=== PATIENT | female | born 1970 | race Caucasian/White ===

== ENCOUNTER → 2019-03-25 09:19 | Outpatient (BNVA) | payer MEDICAID, SELFPAY | PROVIDERS: Family Provider Nurse Practitioner Family; PCP Nurse Practitioner Family; Visit Provider Nurse Practitioner | DX: F31.61 Bipolar disorder, current episode mixed, mild (principal); F41.1 Generalized anxiety disorder | CPT/HCPCS: 99213 ==

== ENCOUNTER → 2019-06-17 07:33 | Outpatient (BNVA) | payer MEDICAID, SELFPAY | PROVIDERS: Family Provider Nurse Practitioner Family; PCP Nurse Practitioner Family; Visit Provider Nurse Practitioner | DX: F41.1 Generalized anxiety disorder (principal); F31.61 Bipolar disorder, current episode mixed, mild | CPT/HCPCS: 99213 ==

== ENCOUNTER → 2019-06-18 11:41 | Outpatient (BNVA) | payer MEDICAID, SELFPAY | PROVIDERS: Family Provider Nurse Practitioner Family; PCP Nurse Practitioner Family; Visit Provider Specialist | DX: G43.909 Migraine, unspecified, not intractable, without status migrainosus (principal) | CPT/HCPCS: 99213 ==

== ENCOUNTER → 2019-07-28 10:26 | Outpatient (BNVA) | payer MEDICAID, SELFPAY | PROVIDERS: Family Provider Nurse Practitioner Family; PCP Nurse Practitioner Family; Visit Provider Specialist | DX: G56.21 Lesion of ulnar nerve, right upper limb (principal) | CPT/HCPCS: 95910 ==

== ENCOUNTER → 2019-09-09 07:43 | Outpatient (BNVA) | payer MEDICAID, SELFPAY | PROVIDERS: Family Provider Nurse Practitioner Family; PCP Nurse Practitioner Family; Visit Provider Nurse Practitioner | DX: F41.1 Generalized anxiety disorder (principal); F31.61 Bipolar disorder, current episode mixed, mild | CPT/HCPCS: 99213 ==

== ENCOUNTER → 2019-10-03 07:49 | Outpatient (BNVA) | payer MEDICAID, SELFPAY | PROVIDERS: Family Provider Nurse Practitioner Family; PCP Nurse Practitioner Family; Visit Provider Nurse Practitioner | DX: F31.61 Bipolar disorder, current episode mixed, mild (principal) | CPT/HCPCS: 99214 ==

== ENCOUNTER 2019-10-30 15:40 | Outpatient (CLI) | payer MEDICAID, SELFPAY ==
--- NOTE | 2019-10-30 | XR_ITS ---
WS: [id number] SHOULDER LEFT TECHNIQUE: 3 views of the left shoulder CLINICAL INFORMATION: pain COMPARISON: None. FINDINGS: Normal acromioclavicular joint. Normal glenohumeral joint. Acromion is normal in appearance. Normal g lenoid. No evidence of acute fracture dislocation. XR/XR shoulder LT min 2V* [id number] IMPRESSION: Normal left shoulder.
--- NOTE | 2019-10-30 | XR_ITS ---
WS: [id number] ELBOW LEFT TECHNIQUE: 2 views of the left elbow CLINICAL INFORMATION: pain COMPARISON: None. FINDINGS: No significant joint effusion. Distal humerus is normal in appearance. Normal radial head. Normal ole cranon. No evidence of acute fracture dislocation. XR/XR elbow LT 2V [id number] IMPRESSION: Normal left elbow.
== END 2019-10-30 15:41 | disposition home or self-care (01) ==
PROVIDERS: Family Provider Nurse Practitioner Family; PCP Nurse Practitioner Family; Visit Provider Nurse Practitioner Family
DX: M25.522 Pain in left elbow (principal); M25.512 Pain in left shoulder
CPT/HCPCS: 73030; 73070

== ENCOUNTER → 2019-12-03 08:13 | Outpatient (BNVA) | payer MEDICAID, SELFPAY | PROVIDERS: Family Provider Nurse Practitioner Family; PCP Nurse Practitioner Family; Visit Provider Nurse Practitioner | DX: F31.30 Bipolar disorder, current episode depressed, mild or moderate severity, unspecified (principal) | CPT/HCPCS: 99214 ==

== ENCOUNTER 2019-12-16 11:23 | Outpatient (CLI) | payer MEDICAID, SELFPAY ==
--- NOTE | 2019-12-16 11:41 | USCV_ITS ---
Cindy Dumont Age: 49 Gender: F : 1970 Exam Date: 12/16/2019 11:44 Ordering Phys: Aneta Gross APN Technologist: Melissa Bender Exam Location: [facility] [place] Indication: PAIN IN RT LEG HISTORY: Lower extremity pain. PROCEDURES: Venous duplex imaging was performed in only the right lower extremity. The following venous structures were evaluated: common femoral vein, profunda vein, proximal portion of the greater saphenous vein, superficial femoral vein, and the popliteal vein. In addition, the posterior tibial and peroneal trunk were evaluated. Serial compression, augmentation maneuvers, and spectral Doppler flow evaluation were performed. FINDINGS: Normal 2-D Doppler and augmentation and compressibility throughout the lower extremity venous structures. Additional imaging through the proximal calf veins also reveals no thrombus. Limited evaluation of the greater saphenous vein is patent with no thrombus. CONCLUSIONS No DVT right lower extremity. Dr. Luana Knowles DO (Electronically Signed) Final Date: 16 December 2019 14:35 S
== END 2019-12-16 11:24 | disposition home or self-care (01) ==
LOC: US 11:24
PROVIDERS: PCP Nurse Practitioner Family; Visit Provider Nurse Practitioner Family
DX: M79.661 Pain in right lower leg (principal)
CPT/HCPCS: 93971

== ENCOUNTER → 2019-12-31 07:54 | Outpatient (BNVA) | payer MEDICAID, SELFPAY | PROVIDERS: PCP Nurse Practitioner Family; Visit Provider Nurse Practitioner | DX: F31.30 Bipolar disorder, current episode depressed, mild or moderate severity, unspecified (principal) | CPT/HCPCS: 99214 ==

== ENCOUNTER → 2020-01-13 07:37 | Outpatient (BNVA) | payer MEDICAID, SELFPAY | PROVIDERS: PCP Nurse Practitioner Family; Visit Provider Nurse Practitioner | DX: F31.61 Bipolar disorder, current episode mixed, mild (principal); F41.1 Generalized anxiety disorder | CPT/HCPCS: 99214 ==

== ENCOUNTER → 2020-02-09 07:45 | Outpatient (BNVA) | payer MEDICAID, SELFPAY | PROVIDERS: PCP Nurse Practitioner Family; Visit Provider Nurse Practitioner | DX: F31.30 Bipolar disorder, current episode depressed, mild or moderate severity, unspecified (principal) | CPT/HCPCS: 99214 ==

== ENCOUNTER → 2020-03-22 07:46 | Outpatient (BNVA) | payer MEDICAID, SELFPAY | PROVIDERS: PCP Nurse Practitioner Family; Visit Provider Nurse Practitioner | DX: F31.30 Bipolar disorder, current episode depressed, mild or moderate severity, unspecified (principal); F41.1 Generalized anxiety disorder | CPT/HCPCS: 99214 ==

== ENCOUNTER → 2020-05-04 09:05 | Outpatient (BNVA) | payer MEDICAID, SELFPAY | PROVIDERS: PCP Nurse Practitioner Family; Visit Provider Nurse Practitioner | DX: F41.1 Generalized anxiety disorder (principal); F31.61 Bipolar disorder, current episode mixed, mild | CPT/HCPCS: 99214 ==

== ENCOUNTER → 2020-05-28 09:06 | Outpatient (BNVA) | payer MEDICAID, SELFPAY | PROVIDERS: PCP Nurse Practitioner Family; Visit Provider Nurse Practitioner | DX: F41.1 Generalized anxiety disorder (principal); F31.61 Bipolar disorder, current episode mixed, mild | CPT/HCPCS: 99214 ==

== ENCOUNTER → 2020-06-25 09:04 | Outpatient (BNVA) | payer MEDICAID, SELFPAY | PROVIDERS: PCP Nurse Practitioner Family; Visit Provider Nurse Practitioner | DX: F41.1 Generalized anxiety disorder (principal); F31.61 Bipolar disorder, current episode mixed, mild; F31.30 Bipolar disorder, current episode depressed, mild or moderate severity, unspecified | CPT/HCPCS: 99214 ==

== ENCOUNTER 2020-07-02 12:23 | Outpatient (CLI) | payer MEDICAID, SELFPAY ==
--- NOTE | 2020-07-02 12:42 | MR_ITS ---
WS: [id number] MRI CERVICAL SPINE NONCONTRAST HISTORY: RADICULOPATHY ,CERVICAL REGION COMPARISON: None available. Technique: Multiplanar, multisequence noncontrast imaging of the cervical spine. Mild straightening and slight reversal normal cervical lordosis centered at C4-5. No marrow edema or fracture. Signal within the cervical cord is normal. Visualized posterior fossa is unremarkable. Craniocervical junction, C1 and C2 relationship, odontoid process and soft tissues are normal. C2-C3: Normal. C3-C4: Mild osteophytic ridging and annular bulge. No stenosis. C4-C5: Moderate osteophytic ridging and annular disc bulging. Mild central with moderate bilateral fo raminal stenosis. C5-C6: Mild annular disc bulging and osteophytic ridging. Only very minimal foraminal narrowing. C6-C7: Small bilateral foraminal osteophytes without significant stenosis. C7-T1: Normal. Paraspinal soft tissue are normal. MR/MR cervical spin wo con* [id number] IMPRESSION: 1. No high-grade cervical stenosis. 2. Mild central and moderate bilateral foraminal stenosis at C4-5 due to disc osteophyte disease. 3. Mild foraminal narrowing at C5-6.
--- NOTE | 2020-07-02 12:42 | MR_ITS ---
WS: [id number] MRI LUMBAR SPINE NONCONTRAST HISTORY: BULGING INTERVERTEBRAL DISC BETWEEN L4 AND L5 COMPARISON: 10/31/2016 TECHNIQUE: Sagittal and axial multisequence imaging is submitted. Normal lumbar alignment with no compression fractures or marrow edema. Disc spaces and vertebral body heights are well-preserved. Conus terminates normally at L1. L1-L2: Normal. L2-L3: Normal. L3-L4: Very mild annular disc bulging. Mild facet joint arthritis. No disc protrusion or stenosis. L4-L5: Mild annular disc bulging with a LEFT foraminal focal protrusion with annular fissure. No incr ease in size of the focal disc protrusion with minimal contact on the L4 nerve root. L5-S1: Minimal annular disc bulging with mild facet arthritis. No stenosis. MR/MR lumbar spine wo con* [id number] IMPRESSION: 1. Stable LEFT foraminal disc protrusion with annular fissure contacting the L 4 nerve root. Similar to 10/31/2016. 2. No significant stenosis. 3. Mild facet joint arthritis at L3-4, L4-5 and L5-S1.
== END 2020-07-02 12:24 | disposition home or self-care (01) ==
LOC: RADSHAW 12:27
PROVIDERS: PCP Nurse Practitioner Family; Visit Provider Nurse Practitioner Family
DX: M54.12 Radiculopathy, cervical region (principal); M51.26 Other intervertebral disc displacement, lumbar region; M47.816 Spondylosis without myelopathy or radiculopathy, lumbar region; M47.817 Spondylosis without myelopathy or radiculopathy, lumbosacral region
CPT/HCPCS: 72141; 72148

== ENCOUNTER 2020-09-08 08:39 | Outpatient (CLI) | payer MEDICAID, SELFPAY ==
--- NOTE | 2020-09-08 08:52 | XR_ITS ---
WS: [id number] Right foot, 3 views, 09/08/2020 Clinical Data: PAIN IN RIGHT FOOT Comparison: None. Findings: No fractures or dislocations are seen. No bone destruction or erosion is noted. There is a small buni on at the head of the right first metatarsal.There is a plantar spur. XR/XR foot RT min 3V* [id number] Impression: Small bunion at the right first metatarsal and plantar spur.
--- NOTE | 2020-09-08 08:53 | XR_ITS ---
WS: [id number] LEFT FOOT: 3 VIEW(S) TECHNIQUE: AP, oblique and lateral. HISTORY: PAIN IN LEFT FOOT COMPARISON: None available. No acute fracture or dislocation. Normal tarsal/metatarsal alignment. No soft tissue abnormality or bone destruction. Sclerotic focus in the distal third metatarsals probably a bone island. No disruption of the cortex. Small calcaneal spur. XR/XR foot LT min 3V* [id number] IMPRESSION: Small calcaneal spur. No fracture.
== END 2020-09-08 08:40 | disposition home or self-care (01) ==
PROVIDERS: PCP Nurse Practitioner Family; Visit Provider Nurse Practitioner Family
DX: M79.671 Pain in right foot (principal); M79.672 Pain in left foot; M77.32 Calcaneal spur, left foot; M77.31 Calcaneal spur, right foot; M21.611 Bunion of right foot
CPT/HCPCS: 73630

== ENCOUNTER → 2020-09-15 07:23 | Outpatient (BNVA) | payer MEDICAID, SELFPAY | PROVIDERS: PCP Nurse Practitioner Family; Visit Provider Nurse Practitioner | DX: F41.1 Generalized anxiety disorder (principal); F31.61 Bipolar disorder, current episode mixed, mild; F31.30 Bipolar disorder, current episode depressed, mild or moderate severity, unspecified; F31.81 Bipolar II disorder | CPT/HCPCS: 99214 ==

== ENCOUNTER 2020-10-05 14:34 | Outpatient (CLI) | payer MEDICAID, SELFPAY | END 2020-10-05 14:35 | disposition home or self-care (01) | LOC: SPT 14:34 | PROVIDERS: PCP Nurse Practitioner Family; Visit Provider Podiatrist Foot & Ankle Surgery | DX: Z46.89 Encounter for fitting and adjustment of other specified devices (principal); M72.2 Plantar fascial fibromatosis | CPT/HCPCS: 97760; L4397 ==

== ENCOUNTER → 2020-12-08 07:28 | Outpatient (BNVA) | payer MEDICAID, SELFPAY | PROVIDERS: PCP Nurse Practitioner Family; Visit Provider Nurse Practitioner | DX: F41.1 Generalized anxiety disorder (principal); F31.61 Bipolar disorder, current episode mixed, mild; F31.30 Bipolar disorder, current episode depressed, mild or moderate severity, unspecified; F31.81 Bipolar II disorder | CPT/HCPCS: 99214 ==

== ENCOUNTER → 2021-04-05 07:34 | Outpatient (BNVA) | payer MEDICAID, SELFPAY | PROVIDERS: PCP Nurse Practitioner Family; Visit Provider Nurse Practitioner | DX: F31.81 Bipolar II disorder (principal); F41.1 Generalized anxiety disorder | CPT/HCPCS: 99214 ==

== ENCOUNTER 2021-04-06 09:05 | Outpatient (CLI) | payer MEDICAID, SELFPAY ==
--- NOTE | 2021-04-06 09:30 | MR_ITS ---
WS: [id number] MRI RIGHT FOOT without CONTRAST. COMPARISON: RIGHT foot radiograph 09/08/2020 Multiplanar, multisequence imaging is performed without contrast. Along the heel fat-pad is an area of fibrosis and slightly nodular edema. The normal lobular septa at the fat pad are disrupted. This area corresponds to a marker placed at site of pain. This is best se en on the proton density and T1 sequences and is an area of decreased signal intensity measuring 1.6 x 1.3 cm. There is a small amount of edema adjacent to the lateral most aspect of the plantar fascia. At the at tachment site of the fascia to the calcaneus there is perifascial edema. On the most lateral aspect o f the edema there is a small defect containing increased signal which could be a partial tear. The re maining central and medial fascia is intact. There is no marrow edema. A marker indicating pain is also placed adjacent to the proximal fifth metatarsal. There is no marrow signal abnormality or skin thickening. The abductor digiti minimi tendon is normal. There is very sl ight displacement of the tendon but there is no edema within the tendon. There is an additional marke r indicating pain along the plantar surface of the foot at the level of the third metatarsal head. No marrow edema or increase fluid. No soft tissue mass. No Hoff's neuroma identified. MR/MR foot RT wo con* [id number] IMPRESSION: 1. Suspect an area of fibromatosis on the plantar surface of the calcaneus in the area of pain. This area of fibromatosis measures 1.6 x 1.3 cm. 2. Very mild perifascial edema surrounding the plantar fascial insertion to th e calcaneus. No marrow edema. 3. There is a small defect within the lateral most plantar fascia with edema h ighly suspicious for very minimal tear of the aponeurosis. This is seen only on one image.
== END 2021-04-06 09:06 | disposition home or self-care (01) ==
LOC: RADSHAW 09:08
PROVIDERS: PCP Nurse Practitioner Family; Visit Provider Podiatrist Foot & Ankle Surgery
DX: M72.2 Plantar fascial fibromatosis (principal); M79.671 Pain in right foot; R60.0 Localized edema
CPT/HCPCS: 73718

== ENCOUNTER 2021-05-03 11:47 | Outpatient (CLI) | payer MEDICAID, SELFPAY ==
--- NOTE | 2021-05-03 11:54 | XR_ITS ---
WS: [id number] Left knee, 3 views, 05/03/2021 Clinical Data: ACUTE PAIN OF LEFT KNEE Comparison: None. Findings: No fractures or dislocations are seen. There is mild narrowing of the lateral joint compartment with spurring of the medial and lateral femoral condyles. There is a posterior superior spur of the patell a. The soft tissues are unremarkable. XR/XR knee LT 3V* [id number] Impression: Mild osteoarthritis of left knee with narrowing of the lateral joint compartmen t and spurring of the posterior patella. Kellgren-Sergio Classification: grade 2 (minimal): definite osteophytes and p ossible joint space narrowing
== END 2021-05-03 11:48 | disposition home or self-care (01) ==
PROVIDERS: PCP Nurse Practitioner Family; Visit Provider Nurse Practitioner Family
DX: M17.12 Unilateral primary osteoarthritis, left knee (principal)
CPT/HCPCS: 73562

== ENCOUNTER 2021-05-11 18:44 | Emergency (ER) | payer MEDICAID, SELFPAY ==
[2021-05-11 18:58] VITALS: BP 116/82; PULSE 55; RESP 18; TEMP 36.7; O2SAT 95; BMI 35.0
--- NOTE | 2021-05-11 19:03 | W.ED.EXTPRO ---
HPI - Extremity Problem General: Chief complaint: Extremity Problem,Nontraumatic Stated complaint: L knee pain unable to walk Time Seen by Provider: 05/11/21 19:03 History of Present Illness: 50-year-old female comes in today with injury to the left knee. Patient reports about 5 days ago she was walking in the store and felt like her knee locked up on her. Since then she has had pain and discomfort for the last week. Worsening pain over the last 2 days. Patient appears well. Patient appears in no acute distress. Patient does appear in mild pain worse when ambulating. No fall or acute injury was noted. Review of Systems General: Reports: 10 or more systems reviewed and unremarkable except in HPI and below Musc: Reports: joint pain (Left knee) [facility] PFSH: Medical History Bipolar disorder current episode depressed Bipolar disorder, current episode mixed, mild Bipolar II disorder Generalized anxiety disorder Psychiatric care Family History Father COPD (chronic obstructive pulmonary disease) Other Cancer Diabetes Hypertension Social History Smoking and tobacco status: current every day smoker Lives independently: Yes Household members: spouse Marital status: Physical Exam Const: COMMON NORMALS: alert Neck/C-Spine: COMMON NORMALS: full ROM Resp: COMMON NORMALS: normal respiratory effort Cardio: COMMON NORMALS: regular rate and regular rhythm RATE: regular rate RHYTHM: regular rhythm Extremity: LEFT LOWER EXTREMITY: Yes knee joint (Tenderness noted to bilateral joint line. Minimal to no swelling.) Left knee: Yes inspection, Yes palpation, Yes ROM (Decreased due to pain) and Yes neurovascular exam Neuro: SENSORIUM/ORIENTATION: Yes alert Course Vital Signs: Vital signs: Vital Signs Temperature 98.0 F 05/11/21 18:58 Pulse Rate 55 L 05/11/21 18:58 Respiratory Rate 18 05/11/21 18:58 Blood Pressure 116/82 05/11/21 18:58 Pulse Oximetry 95 05/11/21 18:58 MDM - Extremity (Nontraumatic) Medical Decision Making 50-year-old female comes in today with injury to the left knee. On exam patient has tenderness to medial and lateral joint line. Minimal to no swelling is noted. No redness is noted to the joint. Some reduction in range of motion is noted due to pain. Distal pulses and sensation are intact. No obvious deformity is noted. Differential diagnosis includes but not limited to knee sprain, meniscal injury, osteoarthritis. Patient had x-rays done last week at primary care office and was noted to have some spurring along the femoral patellar joint line, this was reported by patient. Patient does have an appointment to see Dr. Kasper. Reviewed exam with patient with recommendations for treatment. Suspect patient probably has a meniscal tear or other abnormality to the meniscus causing inflammation with pain and discomfort. Patient reported understanding and agreed with plan for limiting weightbearing activity, and increasing activity as tolerated. We will increase patient celecoxib from 50 mg daily to 200 mg twice daily for better pain and inflammation control. Patient was also recommended to use acetaminophen along with supportive measures such as elastic bandage and ice or heat. Discharge Plan Discharge Patient Disposition: Home Clinical Impression: Internal derangement of knee, acute Qualifiers: Laterality: left Qualified Code(s): M23.92 - Unspecified internal derangement of left knee Condition: Stable Prescriptions: New celecoxib 200 mg capsule 200 mg PO BID Qty: 20 0RF Discontinued celecoxib [Celebrex] 50 mg capsule 50 mg PO DAILY 0RF No Action prednisone 10 mg tablet 10 mg PO DAILY 12 Days Qty: 42 0RF Rx Instructions: Taper dose handout from physician nitroglycerin [Nitro-Dur] 0.1 mg/hr patch 24 hour 1 patch transdermal Q24H Qty: 30 0RF Rx Instructions: allow nitrate-free interval of approx. 10-12 hrs per 24-hour period atorvastatin 10 mg tablet 10 mg PO DAILY 0RF Zyrtec 10 mg capsule 10 mg PO ONCE 0RF metoprolol tartrate 100 mg tablet 100 mg PO BID 0RF hydrochlorothiazide 50 mg tablet 50 mg PO QAM 0RF tizanidine 4 mg capsule 4 mg PO BID PRN0RF (DME) Night Splint See Rx Instructions .Route .MEDSUPPLY Qty: 1 0RF Rx Instructions: As directed naproxen 500 mg tablet 500 mg PO BID 14 Days Qty: 28 0RF sertraline [Zoloft] 100 mg tablet 100 mg PO DAILY Qty: 30 2RF ziprasidone HCl [Geodon] 20 mg capsule 20 mg PO BID Qty: 60 2RF Rx Instructions: give with food (meal/snack) trazodone 100 mg tablet 100 mg PO .HS Qty: 60 2RF Rx Instructions: 1-2 tabs at bedtime as needed for sleep buspirone 10 mg tablet 10 mg PO TID Qty: 90 2RF alprazolam [Xanax] 0.5 mg tablet 0.5 mg PO BID PRN (Reason: anxiety) Qty: 60 2RF lamotrigine [Lamictal] 25 mg tablet 50 mg PO QDAY Qty: 60 2RF sumatriptan succinate 100 mg tablet See Rx Instructions PO .COMPLEX Qty: 9 4RF Rx Instructions: take 1 tab at onset of headache; if no relief may repeat 1 tab in 2hr; max = 2 tabs/24 hrs PO pantoprazole 40 mg tablet,delayed release (DR/EC) See Rx Instructions .ROUTE .COMPLEX Qty: 30 0RF Dose Instruction: Take 1 tablet by mouth once daily Rx Instructions: Take 1 tablet by mouth once daily (DME) Custom Molded Orthotics See Rx Instructions .Route .MEDSUPPLY Qty: 1 0RF Rx Instructions: As directed by [facility] Discharge Orders: Discharge ED (Routine); Ordered 05/11/21 Ordered By: Alexey Hilton Referrals: Aneta Gross APN [Primary Care Provider] - Discharge Diet: Usual diet Discharge Activity: Increase activity as tolerated Patient Instructions: Knee Pain (ED), Opioid Safety Activity Restrictions/Additional Instructions: Home and rest. Light activity as tolerated. You may need to use a elastic knee support for comfort. Use ice or heat for further comfort. Acetaminophen may be used for further pain relief. Increase activity as tolerated. Follow-up with primary care or orthopedist for further evaluation and treatment. Return to ER for new concerns. Coding Level of Care Code ED Bulk Sausage Casing Tier Off for Mejia Nieves
[2021-05-11] MEDS: ketorolac 30 mg/mL INJ IM (19:31)
[2021-05-11 20:00] VITALS: BP 124/84; PULSE 58; RESP 17; TEMP 36.8; O2SAT 95
[2021-05-11 20:28] VITALS: BP 124/84; PULSE 17; RESP 58; TEMP 36.8; O2SAT 95
== END 2021-05-11 20:05 | disposition home or self-care (01) ==
PROVIDERS: Emergency Provider Nurse Practitioner Family; PCP Nurse Practitioner Family
DX: M23.92 Unspecified internal derangement of left knee (principal); F17.210 Nicotine dependence, cigarettes, uncomplicated
CPT/HCPCS: 96372; 99283; E0114; J1885

== ENCOUNTER → 2021-06-27 12:35 | Outpatient (BNVA) | payer MEDICAID, SELFPAY | PROVIDERS: PCP Nurse Practitioner Family; Referring Provider Nurse Practitioner Family; Visit Provider Specialist | DX: M23.92 Unspecified internal derangement of left knee (principal); M25.562 Pain in left knee | CPT/HCPCS: 73560; 73565; 99204 ==

== ENCOUNTER → 2021-07-04 08:31 | Outpatient (BNVA) | payer MEDICAID, SELFPAY | PROVIDERS: PCP Nurse Practitioner Family; Visit Provider Podiatrist Foot & Ankle Surgery | DX: M72.2 Plantar fascial fibromatosis (principal); M24.571 Contracture, right ankle; M24.572 Contracture, left ankle | CPT/HCPCS: 99214 ==

== ENCOUNTER → 2021-07-11 12:45 | Outpatient (BNVA) | payer MEDICAID, SELFPAY | PROVIDERS: PCP Nurse Practitioner Family; Visit Provider Nurse Practitioner | DX: F31.81 Bipolar II disorder (principal); F41.1 Generalized anxiety disorder | CPT/HCPCS: 99214 ==

== ENCOUNTER 2021-07-14 15:24 | Outpatient (CLI) | payer MEDICAID, SELFPAY ==
--- NOTE | 2021-07-14 16:00 | MR_ITS ---
WS: [id number] MRI OF THE LEFT FOOT WITHOUT GADOLINIUM ENHANCEMENT. INDICATION: Bone spurs heel, arch, and foot pad TECHNIQUE: Sagittal T1, sagittal STIR, axial T1, axial T2, coronal PD, and coronal T2 fat sat FINDINGS: Normal ankle mortise. Normal medial and lateral malleolus. Talar dome is normal. No evidenc e of avascular necrosis. Distal Achilles is normal in appearance. Normal peroneus longus and brevis. Normal extensor and flexor compartment tendons. Small amount of tenosynovitis along the tibialis post erior and tibialis anterior. Plantar calcaneal spur measuring 7.5 mm with a small amount of adjacent reactive edema. Normal planta r aponeurosis.Normal bone marrow signal in the metatarsals. Normal MCP joints. Normal tarsal bones. MR/MR foot LT wo con* [id number] IMPRESSION: 1. Plantar calcaneal spur measuring 7.5 mm with a small amount of adjacent david ctive edema. 2. Distal Achilles is normal in appearance. 3. Normal ankle mortise. Normal talar dome. No evidence of avascular necrosis. 4. Small amount tenosynovitis along the tibialis anterior and posterior. 5. Normal peroneal tendon sheath.
== END 2021-07-14 15:25 | disposition home or self-care (01) ==
LOC: RAD 15:25
PROVIDERS: PCP Nurse Practitioner Family; Visit Provider Podiatrist Foot & Ankle Surgery
DX: M72.2 Plantar fascial fibromatosis (principal); M77.32 Calcaneal spur, left foot; M65.9 Synovitis and tenosynovitis, unspecified
CPT/HCPCS: 73718

== ENCOUNTER 2021-07-22 05:55 | Day surgery (SDC) | payer MEDICAID, SELFPAY ==
[2021-07-21 10:57] VITALS: BMI 35.4
[2021-07-22 06:05] VITALS: BP 151/112; PULSE 67; RESP 16; TEMP 36.2; O2SAT 95
[2021-07-22] MEDS: sodium chloride 0.9% 1,000 ML 30 ML IV (06:15)
[2021-07-22] MEDS: gabapentin 300 mg Capsule PO (06:15)
[2021-07-22] MEDS: CELEcoxib 200 mg Capsule 400 MG PO (06:15)
--- NOTE | 2021-07-22 06:37 | W.PM.OPSUD ---
Surgery/Procedure H&P Update DATE OF PROCEDURE: July 22, 2021 DATE H&P PERFORMED: 07/04/21 CHANGES TO PREVIOUS DOCUMENTATION: None PREOP DIAGNOSIS: Right plantar fasciitis. Right equinus. PRIMARY INDICATION FOR PROCEDURE: Right gastrocnemius equinus. Recalcitrant right plantar fibromatosis. PLANNED PROCEDURE: Operation Date: 07/22/21 07:00 Proposed Procedures p Gastrocnemius Recession [id number]/m72.2(Right) - Nelson Benedict DPM s Heel Fasciotomy(Right) - Nelson Benedict DPM
--- NOTE | 2021-07-22 06:42 | ANES.PREANE2 ---
Pre-Anesthetic Assessment Height/Weight: Height 1.6 m Weight 90.718 kg Temp Pulse Resp BP Pulse Ox 97.2 F L 67 16 151/112 95 07/22/21 06:05 07/22/21 06:05 07/22/21 06:05 07/22/21 06:05 07/22/21 06:05 Preop Diagnosis: Right plantar fasciitis. Right equinus. Operation Date: 07/22/21 07:00 Proposed Procedures p Gastrocnemius Recession [id number]/00067/m72.2(Right) - Nelson Benedict DPM s Heel Fasciotomy(Right) - Nelson Benedict DPM Familial anesthetic complications: None Was Beta Shannan taken within 24 hours: Yes Was Clonidine taken within 24 hours: N/A Last intake: Intake Last Liquid Date 07/21/21 Last Liquid Time 21:00 Last Solid Date 07/21/21 Last Solid Time 21:00 Social No alcohol and No tobacco Exam alert, oriented x 3, clear to auscultation bilaterally and regular rate & rhythm Airway Submandibular: within normal limits Cervical ROM: within normal limits Mallampati: Class II Dentition: false CV/HEM Hypertension GI Gastroesophageal Reflux Disease Metabolic Hyperlipidemia and Morbid Obesity Neuropsych Anxiety, Bipolar, Depression and Neuropathy Anesthetic Plan ASA status: 3 Anesthesia: General Medications/Allergies Home Medications Medication Instructions Recorded Confirmed Last Taken Type cetirizine 10 mg capsule (Zyrtec) 10 mg PO DAILY 03/25/19 07/22/21 07/21/21 History hydrochlorothiazide 50 mg tablet 50 mg PO QAM 03/25/19 07/22/21 07/21/21 History metoprolol tartrate 100 mg tablet 100 mg PO BID 03/25/19 07/22/21 07/22/21 05:00 History sumatriptan succinate 100 mg tablet See Rx Instructions PO .COMPLEX #9 05/14/19 07/22/21 Unknown Rx tab atorvastatin 10 mg tablet 10 mg PO DAILY 01/25/21 07/22/21 07/21/21 History alprazolam 0.5 mg tablet (Xanax) 0.5 mg PO BID PRN #60 tab 07/05/21 07/22/21 07/21/21 Rx buspirone 10 mg tablet 10 mg PO TID #90 tab 07/05/21 07/22/21 07/21/21 Rx lamotrigine 25 mg tablet (Lamictal) 50 mg PO QDAY #60 tab 07/05/21 07/22/21 07/21/21 Rx sertraline 100 mg tablet (Zoloft) 100 mg PO DAILY #30 tab 07/05/21 07/22/21 07/21/21 Rx trazodone 100 mg tablet 100 mg PO .HS #60 tab 07/05/21 07/22/21 07/21/21 Rx ziprasidone HCl 20 mg capsule 20 mg PO BID #60 cap 07/05/21 07/22/21 07/21/21 Rx (Geodon) cyclobenzaprine 10 mg tablet 10 mg PO .Q4H PRN tab 07/11/21 07/22/21 07/21/21 History tizanidine 4 mg capsule 4 mg PO BID PRN 07/11/21 07/22/21 07/21/21 History apple cider vinegar 300 mg tablet 300 mg PO DAILY 07/21/21 07/22/21 07/21/21 History collagen,hydrolysate 500 mg-biotin 1 cap PO DAILY 07/21/21 07/22/21 07/21/21 History 800 mcg-ascorbic acid 50 mg capsule (Collagen 1500 Plus C) pantoprazole 40 mg tablet,delayed 40 mg PO DAILY 07/21/21 07/22/21 07/21/21 History release amlodipine 2.5 mg tablet 2.5 mg PO DAILY 07/22/21 07/22/21 07/22/21 05:00 History Allergies Allergy/AdvReac Type Severity Reaction Status Date / Time No Known Allergies Allergy Verified 07/21/21 10:56 Current Medications Generic Name Dose Route Start Last Admin Trade Name Freq PRN Reason Stop Dose Admin Sodium Chloride 1,000 mls @ 30 mls/hr 07/22/21 06:00 07/22/21 06:15 Sodium Chloride 0.9% IV 07/23/21 05:59 30 mls/hr .Q24H WANDA Administration PFSH Anesthesia Medical History Bipolar disorder current episode depressed Bipolar disorder, current episode mixed, mild Bipolar II disorder Generalized anxiety disorder Psychiatric care Family History Father COPD (chronic obstructive pulmonary disease) Other Cancer Diabetes Hypertension Social History Smoking and tobacco status: never smoked Lives independently: Yes Household members: spouse Marital status: Data Anesthesia : 07/22/21 06:23 Cardiac Studies: No Data to Display
[2021-07-22] MEDS: lidocaine 2% INJ 20 mL INJECTION (07:31)
[2021-07-22 07:43] VITALS: BP 111/75; PULSE 70; RESP 20; TEMP 36.1; O2SAT 96
--- NOTE | 2021-07-22 07:44 | P.OP_ITS ---
Operative Report Pre-op diagnosis: Procedure: Date of procedure: July 22, 2021 Pre-op diagnosis: Recalcitrant plantar fasciitis and gastrocnemius equinus all right lower extremity. Post-op diagnosis: Same Post-op findings: Fibrosing of the right plantar fascia Procedure done: Right gastrocnemius recession and right plantar fascial release CPT codes 73420 and 63739 Implants: 3-0 Prolene, 3-0 Vicryl, 3-0 nylon Specimens removed/disposition: None Pathology: None Surgeon: Nelson Benedict D.P.M. Fur Repair Inspector: See intraoperative documentation Estimated blood loss: 5 See intraoperative documentation IV fluids: None Urine output: 0 Tourniquet time: 20 minutes Complications: None Brief History: Ms. Dumont is a pleasant 50-year-old female with recalcitrant plantar fasciitis to the right. She has had plantar fasciitis pain for approximately 24 months.? Treatments have included supportive shoes, aggressive stretching regimen, avoiding barefoot walking, prefabricated orthotics, icing, formal physical therapy, night splint, series of cortisone injections.? Pain is consistently been more severe at the right.? Her plantar fasciitis has failed to respond to basic conservative treatments. Discussed gastrocnemius recession and [place] versus gastrocnemius recession and plantar fascial release she would like to be more aggressive with this procedure and understands increased risk with plantar fascial release including pes planus foot type and symptomatic flatfoot.? Procedure: Under mild sedation the patient was brought to the operating room and remained on the gurney in supine position.? A time was performed.? Anesthesia was then administered by the anesthesia service.? Local anesthesia injected by myself at the right plantar fascia at the instep and at the area of the myotendinous juncture and flare of the gastrocnemius muscle medially right leg.? Well-padded pneumatic tourniquet applied to the right thigh.? The right lower extremity was then scrubbed, prepped and draped utilizing normal aseptic technique.? Right foot and leg were exanguinated with an Esmarch bandage and the tourniquet inflated to 250 mmHg. Attention was directed to the right leg medially where the distal flare of the gastrocnemius muscle belly was appreciated.? A linear longitudinal incision is made through skin with #15 blade approximately 4 cm in length.? Blunt dissection carried through subcutaneous tissue and fat layer down to the layer of crural fascia utilizing a deep new 15 blade a crural fascial incision was made in the interval between the gastrocnemius muscle and solus muscle was delineated utilizing blunt dissection by hand.? A self-retaining retractor was then introduced and I was able to visualize from medial to lateral of the entire gastrocnemius aponeurosis which was released from medial to lateral with Metzenbaum scissors under direct visualization.? Increased dorsiflexion appreciated intraoperatively.? Incision was flushed with saline solution and closed with 3-0 Vicryl acral fascia and subcutaneous tissue as well as 3-0 nylon at skin. Attention was then directed to the right plantar instep where at a skin fold a transverse incision was performed directly over the plantar fascia with a #15 blade approximately 4 cm in width with blunt dissection carried down to the plantar fascia which was visualized and released from medial to lateral with a #15 blade releasing the medial two thirds of the plantar fascia.? The incision was flushed with saline solution and closed with 3-0 Prolene. Both incisions were then dressed with Adaptic, sterile 4 x 4, Kerlix, Ravin wrap and a cam boot was applied to the right lower extremity followed by deflation of the tourniquet and a prompt hyperemic response noted to the distal digits of the right foot.? Patient tolerated the procedure and anesthesia well and was transferred to the PACU with vital signs stable and vascular status intact.? Following a period of postoperative monitoring she will be discharged home may be protected weightbearing with Cam boot will utilize crutches or a walker.? Follow-up nurse visit next week.
[2021-07-22 07:49] VITALS: BP 109/71; PULSE 68; RESP 18; TEMP 36.1; O2SAT 94
[2021-07-22 07:51] LABS: Blood Urea Nitrogen 8 mg/dL (6-20); Calcium 8.4 mg/dL (8.5-10.5); Carbon Dioxide 31 mmol/L (22-29); Chloride 102 mmol/L (98-107); Glomerular Filtration Rate 76.2 mL/min (90-130); Glucose 111 mg/dL (65-115); Osmolality Calculated 289 mOsm/kg (285-295); Sodium 140 mmol/L (136-145)
[2021-07-22 07:56] VITALS: BP 115/86; PULSE 64; RESP 16; TEMP 36.1; O2SAT 94
[2021-07-22 08:16] VITALS: BP 134/87; PULSE 61; RESP 16; TEMP 36.2; O2SAT 96
[2021-07-22] MEDS: oxyCODONE-APAP 10-325 mg Tablet 1 TAB PO (08:42)
--- NOTE | 2021-07-22 11:33 | ANE.PACU2 ---
Inpatient post-anesthesia follow up: Airway intact: Yes Vital signs: Temperature 97.2 F Pulse Rate 61 Respiratory Rate 16 Blood Pressure 134/87 Pulse Oximetry 96 Oxygen Delivery Me thod Room Air Oxygen Flow Rate Fraction of Inspir ed Oxygen Hydration adequate: Yes Nausea and vomiting: No Pain level: 1 Mental status: Baseline
== END 2021-07-22 08:38 | disposition home or self-care (01) ==
PROVIDERS: PCP Nurse Practitioner Family; Visit Provider Podiatrist Foot & Ankle Surgery
PROC: (CPT 27687; principal; 2021-07-22 07:00)
PROC: (CPT 28008; 2021-07-22 07:00)
DX: M72.2 Plantar fascial fibromatosis (principal); M21.6X1 Other acquired deformities of right foot; I10 Essential (primary) hypertension; K21.9 Gastro-esophageal reflux disease without esophagitis; E78.5 Hyperlipidemia, unspecified; E66.01 Morbid (severe) obesity due to excess calories; Z68.35 Body mass index [BMI] 35.0-35.9, adult
CPT/HCPCS: 27687; 28008; 80048; J0690; J2250; J2704; J3010; J3490; J7030

== ENCOUNTER 2021-07-23 22:58 | Emergency (ER) | payer MEDICAID, SELFPAY ==
--- NOTE | 2021-07-23 23:00 | USR_ITS ---
PROCEDURE INFORMATION: Exam: US Duplex Right Lower Extremity Veins, Limited Exam date and time: 07/23/2021 11:36 PM Age: 50 years old Clinical indication: Pain; Leg, lower; Right; Prior surgery; Surgery date: 3-7 days post-operative; Additional info: Calf pain, R/O dvt TECHNIQUE: Imaging protocol: Real-time Duplex ultrasound of the Right Lower Extremity with 2-D nelson scale, color Doppler flow and spectral waveform analysis with image documentation. Limited exam was focused on the right lower extremity veins. COMPARISON: MR foot RT wo con* [id number] 04/06/2021 9:40 AM FINDINGS: Right deep veins: Partially occlusive deep venous thrombosis in the right peroneal vein. Right superficial veins: Unremarkable. Saphenofemoral junction is patent without thrombus. Soft tissues: Unremarkable. US/[place] [id number] IMPRESSION: Partially occlusive deep venous thrombosis in the right peroneal vein.
[2021-07-23 23:07] VITALS: BP 130/78; PULSE 56; RESP 18; TEMP 36.8; O2SAT 95; BMI 34.5
--- NOTE | 2021-07-23 23:27 | W.ED.EXTPRO ---
Documented by User: HELEN Gooden 07/24/21 00:58 HPI - Extremity Problem General: Chief complaint: Extremity Injury, Lower Stated complaint: R leg pain, possible DVT Time Seen by Provider: 07/23/21 23:27 History of Present Illness: 50-year-old female comes in today with complaints of pain in the right lower extremity. Patient reports pain starts in the calf and radiates up into the groin. Patient has a history of a DVT. Patient had recent surgical procedure on Sunday for a plan of fascia pain. 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 Associated symptoms: Deny chest pain Review of Systems General: Reports: 10 or more systems reviewed and unremarkable except in HPI and below Card: Denies: chest pain Resp: Denies: dyspnea Musc: Reports: extremity pain PFSH ED PFSH: Medical History Bipolar disorder current episode depressed Bipolar disorder, current episode mixed, mild Bipolar II disorder Generalized anxiety disorder Psychiatric care Family History Father COPD (chronic obstructive pulmonary disease) Other Cancer Diabetes Hypertension Social History Smoking and tobacco status: never smoked Lives independently: Yes Household members: spouse Marital status: Physical Exam Const: COMMON NORMALS: alert HENMT: COMMON NORMALS: atraumatic HEAD & SCALP: atraumatic Neck/C-Spine: COMMON NORMALS: full ROM Chest: COMMONS NORMALS: normal inspection of the chest Resp: COMMON NORMALS: normal respiratory effort and clear to auscultation bilaterally AUSCULTATION: clear to auscultation bilaterally Cardio: COMMON NORMALS: regular rate RATE: regular rate Extremity: RIGHT LOWER EXTREMITY: Yes upper leg (Tenderness to the medial thigh.) Right upper leg: Yes inspection, Yes palpation and Yes neurovascular exam, Yes knee joint (Posterior knee tenderness) Right knee: Yes inspection, Yes palpation and Yes ROM and Yes lower leg (Tenderness in the calf. No significant swelling or redness. Dressing from) Neuro: SENSORIUM/ORIENTATION: Yes alert Course Vital Signs: Vital signs: Vital Signs Temperature 98.2 F 07/23/21 23:07 Pulse Rate 56 L 07/24/21 01:14 Respiratory Rate 18 07/24/21 01:14 Blood Pressure 147/68 07/24/21 01:14 Pulse Oximetry 97 07/24/21 01:14 MDM - Extremity (Nontraumatic) Medical Decision Making 50-year-old female comes in today with right calf and thigh pain. Patient has a history of DVT. Patient had recent surgical procedure done on her foot and is concerned for DVT. On exam minimal swelling or redness is noted there is palpable calf and posterior knee tenderness. Differential diagnosis includes but not limited to muscle strain, DVT, postsurgical pain. Ultrasound of the extremity did show a DVT of the right peroneal that was nonocclusive. Due to the patient's history of prior DVT events we will go ahead and restart her back on Eliquis 10 mg twice a day for a with continuation of maintenance regimen. Reviewed this with Dr. Johnson who agreed with plan. Discussed this with patient reported understanding and need for follow-up. Lab Data Radiology Impressions Venous Duplex 07/23/21 23:00 IMPRESSION: Partially occlusive deep venous thrombosis in the right peroneal vein. ADDENDUM: 07/24/21 0048 THIS REPORT CONTAINS FINDINGS THAT MAY BE CRITICAL TO PATIENT CARE. The findings were verbally communicated via telephone conference with ALEXEY SETHI at 12:46 AM CDT on 07/24/2021. The findings were acknowledged and understood. Discharge Plan Discharge Patient Disposition: Home Clinical Impression: Acute deep vein thrombosis (DVT) of right peroneal vein Condition: Stable Prescriptions: New Eliquis DVT-PE Treat 30D Start 5 mg (74 tabs) tablets,dose pack See Rx Instructions .ROUTE .COMPLEX Qty: 74 0RF Rx Instructions: orally per package directions No Action atorvastatin 10 mg tablet 10 mg PO DAILY 0RF Zyrtec 10 mg capsule 10 mg PO DAILY 0RF metoprolol tartrate 100 mg tablet 100 mg PO BID 0RF hydrochlorothiazide 50 mg tablet 50 mg PO QAM 0RF tizanidine 4 mg capsule 4 mg PO BID PRN (Reason: muscle relaxer) 0RF Label Comments: no longer taking cyclobenzaprine 10 mg tablet 10 mg PO .Q4H PRN (Reason: muscle relaxer) 0RF sumatriptan succinate 100 mg tablet See Rx Instructions PO .COMPLEX Qty: 9 4RF Rx Instructions: take 1 tab at onset of headache; if no relief may repeat 1 tab in 2hr; max = 2 tabs/24 hrs PO alprazolam [Xanax] 0.5 mg tablet 0.5 mg PO BID PRN (Reason: anxiety) Qty: 60 2RF buspirone 10 mg tablet 10 mg PO TID Qty: 90 2RF lamotrigine [Lamictal] 25 mg tablet 50 mg PO QDAY Qty: 60 2RF sertraline [Zoloft] 100 mg tablet 100 mg PO DAILY Qty: 30 2RF trazodone 100 mg tablet 100 mg PO .HS Qty: 60 2RF Rx Instructions: 1-2 tabs at bedtime as needed for sleep ziprasidone HCl [Geodon] 20 mg capsule 20 mg PO BID Qty: 60 2RF Rx Instructions: give with food (meal/snack) pantoprazole 40 mg tablet,delayed release (DR/EC) 40 mg PO DAILY 0RF apple cider vinegar 300 mg Tablet 300 mg PO DAILY 0RF Collagen 1500 Plus C 500 mg-800 mcg- 50 mg Capsule 1 cap PO DAILY 0RF amlodipine 2.5 mg Tablet 2.5 mg PO DAILY 0RF Percocet 10-325 mg tablet 1 tab PO Q6H PRN (Reason: pain) 7 Days Qty: 20 0RF Discharge Orders: Discharge ED (Routine); Ordered 07/24/21 Ordered By: Alexey Sethi Referrals: Aneta Gross APN [Primary Care Provider] - Discharge Diet: Usual diet Discharge Activity: Increase activity as tolerated Patient Instructions: Apixaban (By mouth) (Eliquis), Deep Vein Thrombosis (ED), Opioid Safety Activity Restrictions/Additional Instructions: Continue with routine care. Take apixaban as directed per package. Drink plenty water. Activity as tolerated. Follow-up with primary care as needed. Follow-up with surgeon. Return to ER for severe chest pain or severe shortness of breath. Coding Level of Care Code ED Associate School Psychologist for [employer] Fwd Exam Detailed Documented by User: Francisco Javier Johnson DO 07/24/21 01:33 HPI - Extremity Problem General: Chief complaint: Extremity Injury, Lower Stated complaint: R leg pain, possible DVT Time Seen by Provider: 07/23/21 23:27 [facility] ED PFSH: Medical History Bipolar disorder current episode depressed Bipolar disorder, current episode mixed, mild Bipolar II disorder Generalized anxiety disorder Psychiatric care Family History Father COPD (chronic obstructive pulmonary disease) Other Cancer Diabetes Hypertension Social History Smoking and tobacco status: never smoked Lives independently: Yes Household members: spouse Marital status: Course Vital Signs: Vital signs: Vital Signs Temperature 98.2 F 07/23/21 23:07 Pulse Rate 56 L 07/24/21 01:14 Respiratory Rate 18 07/24/21 01:14 Blood Pressure 147/68 07/24/21 01:14 Pulse Oximetry 97 07/24/21 01:14 MDM - Extremity (Nontraumatic) Medical Decision Making 50-year-old female comes in today with right calf and thigh pain. Patient has a history of DVT. Patient had recent surgical procedure done on her foot and is concerned for DVT. On exam minimal swelling or redness is noted there is palpable calf and posterior knee tenderness. Differential diagnosis includes but not limited to muscle strain, DVT, postsurgical pain. Ultrasound of the extremity did show a DVT of the right peroneal that was nonocclusive. Due to the patient's history of prior DVT events we will go ahead and restart her back on Eliquis 10 mg twice a day for a with continuation of maintenance regimen. Reviewed this with Dr. Johnson who agreed with plan. Discussed this with patient reported understanding and need for follow-up. This patient was originally seen by HELEN Yen.? I agree with his history, evaluation, and treatment. Lab Data Radiology Impressions Venous Duplex 07/23/21 23:00 IMPRESSION: Partially occlusive deep venous thrombosis in the right peroneal vein. ADDENDUM: 07/24/21 0048 THIS REPORT CONTAINS FINDINGS THAT MAY BE CRITICAL TO PATIENT CARE. The findings were verbally communicated via telephone conference with ALEXEY SETHI at 12:46 AM CDT on 07/24/2021. The findings were acknowledged and understood. Discharge Plan Discharge Patient Disposition: Home Clinical Impression: Acute deep vein thrombosis (DVT) of right peroneal vein Condition: Stable Prescriptions: Edwar Shah DVT-PE Treat 30D Start 5 mg (74 tabs) tablets,dose pack See Rx Instructions .ROUTE .COMPLEX Qty: 74 0RF Rx Instructions: orally per package directions No Action atorvastatin 10 mg tablet 10 mg PO DAILY 0RF Zyrtec 10 mg capsule 10 mg PO DAILY 0RF metoprolol tartrate 100 mg tablet 100 mg PO BID 0RF hydrochlorothiazide 50 mg tablet 50 mg PO QAM 0RF tizanidine 4 mg capsule 4 mg PO BID PRN (Reason: muscle relaxer) 0RF Label Comments: no longer taking cyclobenzaprine 10 mg tablet 10 mg PO .Q4H PRN (Reason: muscle relaxer) 0RF sumatriptan succinate 100 mg tablet See Rx Instructions PO .COMPLEX Qty: 9 4RF Rx Instructions: take 1 tab at onset of headache; if no relief may repeat 1 tab in 2hr; max = 2 tabs/24 hrs PO alprazolam [Xanax] 0.5 mg tablet 0.5 mg PO BID PRN (Reason: anxiety) Qty: 60 2RF buspirone 10 mg tablet 10 mg PO TID Qty: 90 2RF lamotrigine [Lamictal] 25 mg tablet 50 mg PO QDAY Qty: 60 2RF sertraline [Zoloft] 100 mg tablet 100 mg PO DAILY Qty: 30 2RF trazodone 100 mg tablet 100 mg PO .HS Qty: 60 2RF Rx Instructions: 1-2 tabs at bedtime as needed for sleep ziprasidone HCl [Geodon] 20 mg capsule 20 mg PO BID Qty: 60 2RF Rx Instructions: give with food (meal/snack) pantoprazole 40 mg tablet,delayed release (DR/EC) 40 mg PO DAILY 0RF apple cider vinegar 300 mg Tablet 300 mg PO DAILY 0RF Collagen 1500 Plus C 500 mg-800 mcg- 50 mg Capsule 1 cap PO DAILY 0RF amlodipine 2.5 mg Tablet 2.5 mg PO DAILY 0RF Percocet 10-325 mg tablet 1 tab PO Q6H PRN (Reason: pain) 7 Days Qty: 20 0RF Discharge Orders: Discharge ED (Routine); Ordered 07/24/21 Ordered By: Alexey Sethi Referrals: Aneta Gross APN [Primary Care Provider] - Discharge Diet: Usual diet Discharge Activity: Increase activity as tolerated Patient Instructions: Apixaban (By mouth) (Eliquis), Deep Vein Thrombosis (ED), Opioid Safety Activity Restrictions/Additional Instructions: Continue with routine care. Take apixaban as directed per package. Drink plenty water. Activity as tolerated. Follow-up with primary care as needed. Follow-up with surgeon. Return to ER for severe chest pain or severe shortness of breath. Coding Level of Care Code ED Associate School Psychologist for Mejia [employer]wmora Exam Detailed
[2021-07-23 23:28] VITALS: RESP 18
[2021-07-24] MEDS: apixaban 5 mg Tablet 10 MG PO (01:08)
[2021-07-24 01:14] VITALS: BP 147/68; PULSE 56; RESP 18; O2SAT 97
== END 2021-07-24 01:15 | disposition home or self-care (01) ==
PROVIDERS: Emergency Provider Nurse Practitioner Family; PCP Nurse Practitioner Family
DX: I82.451 Acute embolism and thrombosis of right peroneal vein (principal)
CPT/HCPCS: 93971; 99283

== ENCOUNTER 2021-07-28 14:57 | Emergency (ER) | payer MEDICAID, SELFPAY ==
[2021-07-28 16:14] VITALS: BP 129/83; PULSE 50; RESP 16; TEMP 37; O2SAT 96; BMI 33.6
--- NOTE | 2021-07-28 16:25 | CTR_ITS ---
PROCEDURE INFORMATION: Exam: CT Head Without Contrast Exam date and time: 07/28/2021 4:45 PM Age: 50 years old Clinical indication: Injury or trauma; Fall; Blunt trauma (contusions or hematomas); Without loss of consciousness; Injury details: PT fell 2 hours ago hit top of head. Says there was a bump that has gone down but says the area now feels numb. PT on eliquis; Additional info: Fall, head injury, on eliquis TECHNIQUE: Imaging protocol: Computed tomography of the head without contrast. Radiation optimization: All CT scans at this facility use at least one of these dose optimization techniques: automated exposure control; mA and/or kV adjustment per patient size (includes targeted exams where dose is matched to clinical indication); or iterative reconstruction. COMPARISON: CT head wo con* [id number] 12/28/2014 11:35 AM RADIATION DOSE METRICS: Total DLP (mGy-cm): 848.77 FINDINGS: Brain: Normal. No hemorrhage. Unremarkable white matter. No mass effect. Cerebral ventricles: No ventriculomegaly. Paranasal sinuses: Visualized sinuses are unremarkable. No fluid levels. Mastoid air cells: Visualized mastoid air cells are well aerated. Bones/joints: Unremarkable. No acute fracture. Soft tissues: Unremarkable. CT/CT head wo con* [id number] IMPRESSION: No acute intracranial abnormality.
--- NOTE | 2021-07-28 17:32 | W.ED.FALL ---
HPI - Fall General: Chief Complaint: Fall Stated Complaint: Fell and hit head Time Seen by Provider: 07/28/21 17:32 History of Present Illness: 50-year-old female comes in today with complaints of head injury secondary to fall. Patient had lost her balance and fell and hit the back of her head. Patient denies any loss of consciousness. Patient was recently started on Eliquis for DVT secondary to surgery of her right lower extremity. Patient does report some pain improvement since starting the blood thinners for her right lower extremity DVT. Patient appears well. Patient does have some posterior scalp tenderness. Associated symptoms-after fall: Denies chest pain or neck pain Review of Systems General: Reports: 10 or more systems reviewed and unremarkable except in HPI and below Const: Denies: fever(s) Card: Denies: chest pain Resp: Denies: dyspnea GI: Reports: nausea; Denies: vomiting Musc: Denies: neck pain Skin/Breast: Denies: new lesions PFSH ED PFSH: Medical History Bipolar disorder current episode depressed Bipolar disorder, current episode mixed, mild Bipolar II disorder Generalized anxiety disorder Psychiatric care Family History Father COPD (chronic obstructive pulmonary disease) Other Cancer Diabetes Hypertension Social History Smoking and tobacco status: never smoked Lives independently: Yes Household members: spouse Marital status: Physical Exam HENMT: COMMON NORMALS: normocephalic and Normal external nose present HEAD & SCALP: normocephalic NOSE: Normal external nose present Eye: GENERAL EYE: appearance normal, both eyes and all related structures Neck/C-Spine: COMMON NORMALS: full ROM Resp: COMMON NORMALS: normal respiratory effort Back/Pelvis: COMMON NORMALS: thoracic and lumbar spine normal to inspection Extremity: COMMON NORMALS: normal to inspection Skin: COMMON NORMALS: no rashes or lesions noted GENERAL SKIN EXAM: no rashes or lesions noted Course Vital Signs: Vital signs: Vital Signs Temperature 98.6 F 07/28/21 16:14 Pulse Rate 50 L 07/28/21 16:14 Respiratory Rate 16 07/28/21 16:14 Blood Pressure 129/83 07/28/21 16:14 Pulse Oximetry 96 07/28/21 16:14 MDM - Fall Medical Decision Making 50-year-old female comes in for evaluation of head injury and concern for intracranial bleeding. On exam patient appears well. No obvious external injuries noted. Patient does have some tenderness to the scalp. No bleeding is noted. No palpation of crepitus is noted. No other signs of injury is noted. No focal neurodeficits are noted. Differential diagnosis includes scalp contusion, intracranial bleeding, fracture. CT of the head indicated no intracranial bleeding or fracture. Reviewed exam with patient with recommendations for treatment and follow-up. Patient reported understanding. Lab Data Radiology Impressions Head CT 07/28/21 16:25 IMPRESSION: No acute intracranial abnormality. Discharge Plan Discharge Patient Disposition: Home Clinical Impression: Acute deep vein thrombosis (DVT) of right peroneal vein Head injury Qualifiers: Encounter type: initial encounter Qualified Code(s): S09.90XA - Unspecified injury of head, initial encounter Condition: Stable Prescriptions: No Action atorvastatin 10 mg tablet 10 mg PO DAILY 0RF Zyrtec 10 mg capsule 10 mg PO DAILY 0RF metoprolol tartrate 100 mg tablet 100 mg PO BID 0RF hydrochlorothiazide 50 mg tablet 50 mg PO QAM 0RF tizanidine 4 mg capsule 4 mg PO BID PRN (Reason: muscle relaxer) 0RF Label Comments: no longer taking cyclobenzaprine 10 mg tablet 10 mg PO .Q4H PRN (Reason: muscle relaxer) 0RF sumatriptan succinate 100 mg tablet See Rx Instructions PO .COMPLEX Qty: 9 4RF Rx Instructions: take 1 tab at onset of headache; if no relief may repeat 1 tab in 2hr; max = 2 tabs/24 hrs PO alprazolam [Xanax] 0.5 mg tablet 0.5 mg PO BID PRN (Reason: anxiety) Qty: 60 2RF buspirone 10 mg tablet 10 mg PO TID Qty: 90 2RF lamotrigine [Lamictal] 25 mg tablet 50 mg PO QDAY Qty: 60 2RF sertraline [Zoloft] 100 mg tablet 100 mg PO DAILY Qty: 30 2RF trazodone 100 mg tablet 100 mg PO .HS Qty: 60 2RF Rx Instructions: 1-2 tabs at bedtime as needed for sleep ziprasidone HCl [Geodon] 20 mg capsule 20 mg PO BID Qty: 60 2RF Rx Instructions: give with food (meal/snack) (DME) Knee Scooter See Rx Instructions .Route .MEDSUPPLY Qty: 1 0RF Rx Instructions: As directed HOME pantoprazole 40 mg tablet,delayed release (DR/EC) 40 mg PO DAILY 0RF apple cider vinegar 300 mg Tablet 300 mg PO DAILY 0RF Collagen 1500 Plus C 500 mg-800 mcg- 50 mg Capsule 1 cap PO DAILY 0RF amlodipine 2.5 mg Tablet 2.5 mg PO DAILY 0RF Percocet 10-325 mg tablet 1 tab PO Q6H PRN (Reason: pain) 7 Days Qty: 20 0RF Eliquis DVT-PE Treat 30D Start 5 mg (74 tabs) tablets,dose pack See Rx Instructions .ROUTE .COMPLEX Qty: 74 0RF Rx Instructions: orally per package directions Discharge Orders: Discharge ED (Routine); Ordered 07/28/21 Ordered By: Alexey Hilton Referrals: Aneta Gross APN [Primary Care Provider] - Discharge Diet: Usual diet Discharge Activity: Increase activity as tolerated Patient Instructions: Opioid Safety Activity Restrictions/Additional Instructions: Activity as tolerated. Acetaminophen for pain or routine medications as directed. Follow-up with primary care for further instruction. Return to ER for new concerns. Coding Level of Care Code ED Electric[employer] Top Helper for Mejia Nieves
== END 2021-07-28 17:53 | disposition home or self-care (01) ==
PROVIDERS: Emergency Provider Nurse Practitioner Family; PCP Nurse Practitioner Family
DX: S09.90XA Unspecified injury of head, initial encounter (principal); W18.39XA Other fall on same level, initial encounter; I82.451 Acute embolism and thrombosis of right peroneal vein; Z79.01 Long term (current) use of anticoagulants
CPT/HCPCS: 70450; 99283

== ENCOUNTER 2021-08-16 10:11 | Outpatient (CLI) | payer MEDICAID, SELFPAY ==
--- NOTE | 2021-08-16 11:00 | MR_ITS ---
WS: [id number] MRI LEFT KNEE NONCONTRAST TECHNIQUE: Axial PD, coronal PD fat sat, coronal PD, sagittal PD, and sagittal PD fat-sat images obta ined. CLINICAL INFORMATION: Positive mcmurrays sign COMPARISON: None. FINDINGS: Distal quadriceps and patella tendons are intact. Hypertrophic patella. Normal ACL and PCL. Blunting of the medial meniscus along the meniscal root. This may be due to prior meniscectomy versus meniscal root tear. Normal lateral meniscus. Advanced chondromalacia patella with subchondral edema. Normal medial and lateral patellar retinaculu m. Normal MCL. Normal LCL. Normal popliteal fossa. Small suprapatellar effusion. Moderate chondromala mercedes involving the medial and lateral joint compartments. Small amount of subchondral cystic change in volving the posterior tibia. MR/MR knee LT wo con* [id number] IMPRESSION: 1. Normal ACL and PCL. 2. 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 3. Blunting of the medial meniscus may be due to prior partial meniscectomy ve rsus chronic tear along the meniscal root. Recommend correlation with surgical history. Normal lateral meniscus. 4. 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 Associated s ubchondral edema. Hypertrophic patella. 5. Moderate chondromalacia involving the medial and lateral joint compartments . Outbridge grading: grade III: partial-thickness cartilage loss with focal ulcer ation
== END 2021-08-16 10:12 | disposition home or self-care (01) ==
LOC: RAD 10:11
PROVIDERS: PCP Nurse Practitioner Family; Visit Provider Specialist
DX: M23.90 Unspecified internal derangement of unspecified knee (principal); M17.12 Unilateral primary osteoarthritis, left knee; M22.42 Chondromalacia patellae, left knee
CPT/HCPCS: 73721

== ENCOUNTER → 2021-09-07 08:07 | Outpatient (BNVA) | payer MEDICAID, SELFPAY | PROVIDERS: PCP Nurse Practitioner Family; Visit Provider Specialist | DX: M17.12 Unilateral primary osteoarthritis, left knee (principal) | CPT/HCPCS: 20610; 99213; J1100; J2795; J3301 ==

== ENCOUNTER → 2021-09-15 07:34 | Outpatient (BNVA) | payer MEDICAID, SELFPAY | PROVIDERS: PCP Nurse Practitioner Family; Visit Provider Podiatrist Foot & Ankle Surgery | DX: Z98.890 Other specified postprocedural states (principal) | CPT/HCPCS: 99024 ==

== ENCOUNTER → 2021-09-22 15:16 | Outpatient (BNVA) | payer MEDICAID, SELFPAY | PROVIDERS: PCP Nurse Practitioner Family; Visit Provider Podiatrist Foot & Ankle Surgery | DX: Z98.890 Other specified postprocedural states (principal); M79.669 Pain in unspecified lower leg; I73.9 Peripheral vascular disease, unspecified; M79.672 Pain in left foot | CPT/HCPCS: 99024 ==

== ENCOUNTER 2021-09-22 15:56 | Outpatient (CLI) | payer MEDICAID, SELFPAY ==
--- NOTE | 2021-09-22 16:00 | USCV_ITS ---
Cindy Dumont Age: 51 Gender: F : 1970 Exam Date: 09/22/2021 16:05 Ordering Phys: Nelson Benedict DPM Technologist: DION Exam Location: [facility]_ Indication: H/O RLE DVT. BLE PAIN HISTORY: Lower extremity pain. PROCEDURES: Venous duplex imaging was performed in bilateral lower extremities. The following venous structures were evaluated: common femoral vein, profunda vein, proximal portion of the greater saphenous vein, superficial femoral vein, and the popliteal vein. In addition, the posterior tibial and peroneal trunk were evaluated. Serial compression, augmentation maneuvers, and spectral Doppler flow evaluation were performed. FINDINGS: No evidence of DVT seen in any vessel visualized at this time. CONCLUSIONS No evidence of right lower extremity DVT. No evidence of left lower extremity DVT. Chirag Olivas MD (Electronically Signed) Final Date: 22 September 2021 17:37 S
[2021-09-22 17:24] LABS: D Dimer 0.34 ug/mIFEU (0-0.59)
== END 2021-09-22 15:57 | disposition home or self-care (01) ==
LOC: RAD 15:57
PROVIDERS: PCP Nurse Practitioner Family; Visit Provider Podiatrist Foot & Ankle Surgery
DX: M79.605 Pain in left leg (principal); M79.604 Pain in right leg; I73.9 Peripheral vascular disease, unspecified
CPT/HCPCS: 36415; 73630; 85378; 93970

== ENCOUNTER → 2021-11-07 12:49 | Outpatient (BNVA) | payer MEDICAID, SELFPAY | PROVIDERS: PCP Nurse Practitioner Family; Visit Provider Podiatrist Foot & Ankle Surgery | DX: M79.671 Pain in right foot (principal); M17.12 Unilateral primary osteoarthritis, left knee | CPT/HCPCS: 99213; 99214 ==

== ENCOUNTER 2021-11-09 21:14 | Emergency (ER) | payer MEDICAID, SELFPAY ==
--- NOTE | 2021-11-09 21:18 | XRR_ITS ---
PROCEDURE INFORMATION: Exam: XR Chest Exam date and time: 11/09/2021 10:19 PM Age: 51 years old Clinical indication: Pain; Angina pectoris; Additional info: Cp TECHNIQUE: Imaging protocol: Radiologic exam of the chest. Views: 1 view. COMPARISON: CT angio chest PE protcl [id number] 11/09/2021 10:10 PM FINDINGS: Lungs: No focal airspace disease. Pleural spaces: Unremarkable. No pleural effusion. No pneumothorax. Heart/Mediastinum: Cardiomediastinal silhouette is within normal limits. Bones/joints: Unremarkable. XR/XR chest 1V portable [id number] IMPRESSION: No acute cardiopulmonary abnormality.
--- NOTE | 2021-11-09 21:21 | ECG_ITS ---
[facility] Test Date: 2021-11-09 Pat Name: Cindy Dumont Department: Room: Gender: Female Professor/Nurse Anesthetist: : 1970 Requested By: Hunter Lopez Order Number: [id number] Velma MD: Ana Awan M.D. Measurements Intervals [place] Rate: 53 P: 30 NH: 164 QRS: 1 QRSD: 85 T: 2 QT: 468 QTc: 439 Interpretive Statements SINUS BRADYCARDIA LOW QRS VOLTAGE IN PRECORDIAL LEADS [QRS DEFLECTION < 1.0 mV IN CHEST LEADS] NONSPECIFIC T-WAVE ABNORMALITY Compared to ECG 10/24/2017 12:42:42 T-wave abnormality now present Electronically Signed On 11-11-2021 6:25:32 CDT by Ana Awan M.D. [id number] f
[2021-11-09 21:22] VITALS: BP 137/71; PULSE 55; RESP 24; TEMP 36.7; O2SAT 100
[2021-11-09 21:55] VITALS: BP 152/104; PULSE 51; RESP 18; O2SAT 100
--- NOTE | 2021-11-09 22:00 | CTR_ITS ---
PROCEDURE INFORMATION: Exam: CTA Chest With Contrast Exam date and time: 11/09/2021 10:10 PM Age: 51 years old Clinical indication: Pain; Cough and dyspnea; On breathing; Patient HX: C/O dry cough with dyspnea and chest discomfort. History of pe and dvt. ; Additional info: Chest pain, history of dvt TECHNIQUE: Imaging protocol: Computed tomographic angiography of the chest with contrast. 3D rendering (Not supervised by radiologist): MIP and/or 3D reconstructed images were created by the technologist. Radiation optimization: All CT scans at this facility use at least one of these dose optimization techniques: automated exposure control; mA and/or kV adjustment per patient size (includes targeted exams where dose is matched to clinical indication); or iterative reconstruction. Contrast material: OMNI 350; Contrast volume: 81 ml; Contrast route: INTRAVENOUS (IV); COMPARISON: CT angio chest PE protcl [id number] 10/24/2017 10:19 AM RADIATION DOSE METRICS: Total DLP (mGy-cm): 425.21 FINDINGS: Pulmonary arteries: Normal. No pulmonary emboli. Aorta: Unremarkable. No aortic aneurysm. No aortic dissection. Thyroid: 0.9 cm right thyroid nodule. No imaging follow-up is recommended. Lungs: Unremarkable. No consolidation. No masses. Pleural spaces: Unremarkable. No pneumothorax. No pleural effusion. Heart: Unremarkable. No cardiomegaly. No pericardial effusion. Lymph nodes: Unremarkable. No enlarged lymph nodes. Bones/joints: Unremarkable. No acute fracture. Soft tissues: Unremarkable. CT/CT angio chest PE protcl [id number] IMPRESSION: No acute finding. COMMENTS: Consistent with the [employer]'s Incidental Findings Committee white paper (J Am Josephine Radiol 2015): In patients aged 35 years and older with an incidental thyroid nodule equal to or greater than 1.[address], MRI or extrathyroidal US, further evaluation with dedicated thyroid US is recommended for patients with normal life expectancy and without comorbidities. For smaller nodules without suspicious features, no further evaluation or follow up is recommended.
--- NOTE | 2021-11-09 22:00 | W.ED.CHESTPA ---
HPI - Chest Pain General: Chief Complaint: Chest Pain Stated Complaint: cp Time Seen by Provider: 11/09/21 22:00 History of Present Illness: 51-year-old female comes in with right sided chest discomfort starting this morning. Patient reports pain is worse with deep inspiration. 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 Patient appears nontoxic. Patient does appear in mild to moderate pain. Patient does report being on Eliquis routinely. Associated symptoms: Reports dyspnea; Deny fever(s) Review of Systems General: Reports: 10 or more systems reviewed and unremarkable except in HPI and below Const: Denies: fever(s) Card: Reports: chest pain Resp: Reports: dyspnea and pain on inspiration Musc: Denies: neck pain or back pain PFS ED PFSH: Medical History Bipolar disorder current episode depressed Bipolar disorder, current episode mixed, mild Bipolar II disorder Generalized anxiety disorder Psychiatric care Family History Father COPD (chronic obstructive pulmonary disease) Other Cancer Diabetes Hypertension Social History Smoking and tobacco status: never smoked Lives independently: Yes Household members: spouse Marital status: Physical Exam Const: COMMON NORMALS: alert HENMT: COMMON NORMALS: normocephalic HEAD & SCALP: normocephalic Neck/C-Spine: COMMON NORMALS: full ROM Resp: COMMON NORMALS: normal respiratory effort AUSCULTATION: crackles Laterality: right (lower lung) Cardio: COMMON NORMALS: regular rate and regular rhythm RATE: regular rate RHYTHM: regular rhythm GI: COMMON NORMALS: Soft to palpation and non-tender PALPATION: Yes Soft to palpation Extremity: COMMON NORMALS: no pedal edema Neuro: SENSORIUM/ORIENTATION: Yes alert Skin: COMMON NORMALS: no rashes or lesions noted GENERAL SKIN EXAM: no rashes or lesions noted Course Vital Signs: Vital signs: Vital Signs Temperature 98.0 F 11/09/21 21:22 Pulse Rate 98 11/09/21 23:29 Respiratory Rate 22 H 11/09/21 23:29 Blood Pressure 156/92 11/09/21 23:29 Pulse Oximetry 98 11/09/21 23:29 Oxygen Delivery Me thod 11/09/21 21:22 MDM - Chest Pain Medical Decision Making 51-year-old female comes in today for complaints of right anterior chest pain. On exam no tenderness is noted to palpation of the chest wall. Lungs have some crackles in the right lower lung. Abdomen soft nontender. Skin is warm and dry. Vital signs are unremarkable. Differential diagnosis includes but not limited to pneumonia, pleurisy, pulmonary embolism. Laboratory values were unremarkable. CTA for PE was negative. Chest x-ray was unremarkable. Went ahead and treated patient for pleurisy with a dose of steroid and azithromycin to follow. Patient was encouraged drink plenty of fluids and follow-up with primary care for further instruction. Patient reported understanding agreed to plan. Lab Data : 11/09/21 22:03 11/09/21 22:03 Radiology Impressions Chest CTA 11/09/21 22:00 IMPRESSION: No acute finding. COMMENTS: Consistent with the [employer]'s Incidental Findings Committee white paper (J Am Josephine Radiol 2015): In patients aged 35 years and older with an incidental thyroid nodule equal to or greater than 1.[address], MRI or extrathyroidal US, further evaluation with dedicated thyroid US is recommended for patients with normal life expectancy and without comorbidities. For smaller nodules without suspicious features, no further evaluation or follow up is recommended. Laboratory Results WBC 8.9 10^3/uL (4.0-10.0) 11/09/21 22: RBC 4.80 10^6/uL (4.1-5.3) 11/09/21 22:03 Hgb 14.5 g/dL (11.5-15.3) 11/09/21 22: Hct 43.4 % (37.0-47.0) 11/09/21 22: MCV 90.4 fl (81-99) 11/09/21 22: MCH 30.2 pg (28.0-34.0) 11/09/21 22: MCHC 33.4 g/dL (30.0-36.0) 11/09/21 22:03 RDW 12.7 % (12.1-15.1) 11/09/21 22:03 Plt Count 224 10^3/cmm (130-400) 11/09/21 22:03 MPV 10.9 fL (7.4-10.4) H 11/09/21 22:03 Neut % (Auto) 54.3 % 11/09/21 22:03 Lymph % (Auto) 35.2 % 11/09/21 22:03 Wilkin % (Auto) 7.8 % 11/09/21 22:03 Eos % (Auto) 1.7 % 11/09/21 22:03 Baso % (Auto) 0.7 % 11/09/21 22:03 Neut # (Auto) 4.82 10^3/uL (1.8-7.7) 11/09/21 22:03 Lymph # (Auto) 3.1 10^3/uL (0.8-4.8) 11/09/21 22:03 Wilkin # (Auto) 0.7 10^3/uL (0.2-0.9) 11/09/21 22:03 Eos # (Auto) 0.2 10^3/uL (0.0-0.8) 11/09/21 22:03 Baso # (Auto) 0.1 10^3/uL (0.0-0.1) 11/09/21 22:03 Nucleated RBC % (auto) 0 % 11/09/21 22:03 Nucleated RBCs # 0.0 /100WBC 11/09/21 22:03 Sodium 141 mmol/L (136-145) 11/09/21 22:03 Potassium 3.2 mmol/L (3.5-5.1) L 11/09/21 22:03 Chloride 100 mmol/L (98-107) 11/09/21 22:03 Carbon Dioxide 29 mmol/L (22-29) 11/09/21 22:03 Anion Gap 15.2 (5-19) 11/09/21 22:03 BUN 7 mg/dL (6-20) 11/09/21 22:03 Creatinine 0.9 mg/dL (0.5-0.9) 11/09/21 22:03 GFR Calculation 66.3 mL/min (90-130) L 11/09/21 22:03 Glucose 85 mg/dL (65-115) 11/09/21 22:03 Calculated Osmolality 289 mOsm/kg (285-295) 11/09/21 22:03 Calcium 8.9 mg/dL (8.5-10.5) 08/24/22 22:03 Total Bilirubin 0.2 mg/dL (0.15-1.2) 11/09/21 22:03 AST 17 U/L (0-32) 11/09/21 22:03 ALT 10 U/L (0-33) 11/09/21 22:03 Alkaline Phosphatase 115 U/L (35-105) H 11/09/21 22:03 Troponin T Baseline 8 ng/L (0-10) 11/09/21 22:03 Total Protein 6.5 g/dL (6.6-8.7) L 11/09/21 22:03 Albumin 4.0 g/dL (3.5-5.2) 11/09/21 22:03 Globulin 2.5 g/dL (1.3-4.6) 11/09/21 22:03 Discharge Plan Discharge Patient Disposition: Home Clinical Impression: Acute pleurisy without pleural effusion Condition: Stable Prescriptions: New azithromycin 250 mg tablet 250 mg PO DAILY 4 Days Qty: 4 0RF hydrocodone-acetaminophen 5-325 mg tablet 1 tab PO Q8H PRN (Reason: pain (scale score 7-10)) Qty: 6 0RF No Action atorvastatin 10 mg tablet 10 mg PO DAILY Zyrtec 10 mg capsule 10 mg PO DAILY metoprolol tartrate 100 mg tablet 100 mg PO BID hydrochlorothiazide 50 mg tablet 50 mg PO QAM cyclobenzaprine 10 mg tablet 10 mg PO .Q4H PRN (Reason: muscle relaxer) alprazolam [Xanax] 0.5 mg tablet 0.5 mg PO BID PRN (Reason: anxiety) Qty: 60 2RF trazodone 100 mg tablet 100 mg PO .HS Qty: 60 2RF Rx Instructions: 1-2 tabs at bedtime as needed for sleep ziprasidone HCl [Geodon] 20 mg capsule 20 mg PO BID Qty: 60 2RF Rx Instructions: give with food (meal/snack) buspirone 10 mg tablet 10 mg PO TID Qty: 90 2RF lamotrigine [Lamictal] 25 mg tablet 50 mg PO QDAY Qty: 60 2RF sumatriptan succinate 100 mg tablet See Rx Instructions PO .COMPLEX Qty: 9 4RF Rx Instructions: take 1 tab at onset of headache; if no relief may repeat 1 tab in 2hr; max = 2 tabs/24 hrs PO sertraline [Zoloft] 100 mg tablet 100 mg PO DAILY Qty: 30 2RF pantoprazole 40 mg tablet,delayed release (DR/EC) 40 mg PO DAILY amlodipine 2.5 mg Tablet 2.5 mg PO DAILY Eliquis DVT-PE Treat 30D Start 5 mg (74 tabs) tablets,dose pack See Rx Instructions .ROUTE .COMPLEX Qty: 74 0RF Rx Instructions: orally per package directions Discharge Orders: Discharge ED (Routine); Ordered 11/09/21 Ordered By: Alexey Hilton Referrals: Aneta Gross APN [Primary Care Provider] - Discharge Diet: Usual diet Discharge Activity: Increase activity as tolerated Patient Instructions: Chest Pain (ED) Activity Restrictions/Additional Instructions: Home and rest, activity as tolerated. Drink plenty of water. use acetaminophen for control of pain. Use hydrocodone for severe pain. Follow-up with primary care as needed. Return to ER for new concerns or worsening symptoms. Coding Level of Care Code ED Clinical Education Assistant for Mejia Nieves
[2021-11-09 22:11] LABS: Basophils # 0.1 10^3/uL (0.0-0.1); Basophils % 0.7 %; Eosinophils # 0.2 10^3/uL (0.0-0.8); Eosinophils % 1.7 %; Hematocrit 43.4 % (37.0-47.0); Hemoglobin 14.5 g/dL (11.5-15.3); Lymphocytes # 3.1 10^3/uL (0.8-4.8); Lymphocytes % 35.2 %; Mean Corpuscular HGB Conc 33.4 g/dL (30.0-36.0); Mean Corpuscular Hemoglobin 30.2 pg (28.0-34.0); Mean Corpuscular Volume 90.4 fl (81-99); Mean Platelet Volume 10.9 fL (7.4-10.4); Monocytes # 0.7 10^3/uL (0.2-0.9); Monocytes % 7.8 %; Neutrophils # 4.82 10^3/uL (1.8-7.7); Neutrophils % 54.3 %; Nucleated Red Blood Cells % 0 %; Platelet Count 224 10^3/cmm (130-400); Red Cell Distribution Width 12.7 % (12.1-15.1); White Blood Count 8.9 10^3/uL (4.0-10.0)
[2021-11-09] MEDS: iohexol 350 mg/mL 100 mL Btl IV (22:14)
[2021-11-09 22:54] LABS: Troponin(5th) Baseline 8 ng/L (0-10)
[2021-11-09 22:55] LABS: Alanine Aminotransferase 10 U/L (0-33); Alkaline Phosphatase 115 U/L (35-105); Aspartate Amino Transferase 17 U/L (0-32); Blood Urea Nitrogen 7 mg/dL (6-20); Calcium 8.9 mg/dL (8.5-10.5); Carbon Dioxide 29 mmol/L (22-29); Chloride 100 mmol/L (98-107); Globulin 2.5 g/dL (1.3-4.6); Glomerular Filtration Rate 66.3 mL/min (90-130); Glucose 85 mg/dL (65-115); Osmolality Calculated 289 mOsm/kg (285-295); Sodium 141 mmol/L (136-145); Total Bilirubin 0.2 mg/dL (0.15-1.2); Total Protein 6.5 g/dL (6.6-8.7)
[2021-11-09 22:58] LABS: Anion Gap 15.2 (5-19); Potassium 3.2 mmol/L (3.5-5.1)
[2021-11-09] MEDS: HYDROcodone-acetaminophen 5-325 mg Tablet 1 TAB PO (23:10)
[2021-11-09] MEDS: azithromycin 250 mg Tablet 500 MG PO (23:10)
[2021-11-09] MEDS: dexamethasone 10 mg/mL INJ 6 MG IVP (23:10)
[2021-11-09 23:29] VITALS: BP 156/92; PULSE 98; RESP 22; O2SAT 98
== END 2021-11-09 23:31 | disposition home or self-care (01) ==
PROVIDERS: Emergency Medicine; Emergency Provider Nurse Practitioner Family; PCP Nurse Practitioner Family
DX: R09.1 Pleurisy (principal); Z79.01 Long term (current) use of anticoagulants
CPT/HCPCS: 71045; 71275; 80053; 84484; 85025; 93005; 96374; 99285; J1100; Q0144; Q9967

== ENCOUNTER 2021-11-11 16:26 | Outpatient (CLI) | payer MEDICAID, SELFPAY ==
--- NOTE | 2021-11-11 16:45 | MR_ITS ---
WS: [id number] MRI RIGHT FOOT without CONTRAST. COMPARISON: Foot radiograph 09/22/2021 and prior MRI 04/06/2021 Multiplanar, multisequence imaging is performed without contrast. History: Prior plantar fasciitis surgery. Healing lateral foot pain. There is persistent thickening and induration with soft tissue stranding involving the soft tissues s urrounding the calcaneus. No discrete mass is identified. There is persistent increased T2 signal alina rounding the plantar fascia. This is at the site of the attachment of the calcaneus. There is a small spur measuring 7 mm which is also present. There is edema within the osseous spur and also edema alina rounding the spur. There is no mass. No edema within the calcaneus. The distal Achilles tendon is nor mal. There is a very small amount of edema anterior to the distal Achilles tendon. Tendons and ligaments surrounding the foot are normal. There is a small amount of edema around the an terior talar process. MR/MR foot RT wo con* [id number] IMPRESSION: 1. Mild heel pad inflammation with no focal mass. 2. Mild persistent plantar fasciitis and a small amount of marrow edema in the 7 mm calcaneal spur. 3. Small amount of fluid adjacent to the anterior talar process. May be relate d to altered weightbearing or mild inflammatory arthropathy. 4. No fracture or marrow edema.
== END 2021-11-11 16:27 | disposition home or self-care (01) ==
PROVIDERS: PCP Nurse Practitioner Family; Visit Provider Podiatrist Foot & Ankle Surgery
DX: M79.671 Pain in right foot (principal); M72.2 Plantar fascial fibromatosis; Z98.890 Other specified postprocedural states
CPT/HCPCS: 73718

== ENCOUNTER → 2021-11-17 13:26 | Outpatient (BNVA) | payer MEDICAID, SELFPAY | PROVIDERS: PCP Nurse Practitioner Family; Visit Provider Orthopaedic Surgery | DX: Z09 Encounter for follow-up examination after completed treatment for conditions other than malignant neoplasm (principal); M79.671 Pain in right foot; M54.9 Dorsalgia, unspecified | CPT/HCPCS: 72050; 99204; 99213; 99214 ==

== ENCOUNTER → 2021-11-25 12:32 | Outpatient (BNVA) | payer MEDICAID, SELFPAY | PROVIDERS: PCP Nurse Practitioner Family; Visit Provider Podiatrist Foot & Ankle Surgery | DX: Z09 Encounter for follow-up examination after completed treatment for conditions other than malignant neoplasm (principal); M79.671 Pain in right foot | CPT/HCPCS: 73630; 99213; 99214 ==

== ENCOUNTER → 2021-12-14 08:58 | Outpatient (BNVA) | payer SELFPAY | PROVIDERS: PCP Nurse Practitioner Family; Visit Provider Anesthesiology Pain Medicine | DX: G89.29 Other chronic pain (principal); M54.2 Cervicalgia; M79.601 Pain in right arm; M79.602 Pain in left arm; Z09 Encounter for follow-up examination after completed treatment for conditions other than malignant neoplasm | CPT/HCPCS: 99204; 99213; 99214 ==

== ENCOUNTER 2022-01-03 17:15 | Emergency (ER) | payer MEDICAID, SELFPAY ==
[2022-01-03 17:52] VITALS: BMI 35.0
--- NOTE | 2022-01-03 17:56 | XRR_ITS ---
PROCEDURE INFORMATION: Exam: XR Right Ankle Exam date and time: 01/03/2022 6:37 PM Age: 51 years old Clinical indication: Right; Patient HX: RT. Lat side ankle pain; Additional info: Fall TECHNIQUE: Imaging protocol: Radiologic exam of the Right ankle. Views: 3 or more views. COMPARISON: [place] [id number] 07/23/2021 11:36 PM FINDINGS: Bones/joints: Oblique mildly displaced fracture in the distal right fibula. The distal fragment is displaced laterally and dorsally. The other bones appear intact. The ankle mortise is in normal alignment. Calcaneus spur. Soft tissues: Lateral soft tissue swelling. XR/XR ankle RT min 3V* [id number] IMPRESSION: 1. Distal right fibula fracture. Hall type B ankle fracture.
--- NOTE | 2022-01-03 18:34 | W.ED.EXTPRO ---
HPI - Extremity Problem General: Chief complaint: Extremity Injury, Lower Stated complaint: ankle looks swollen Time Seen by Provider: 01/03/22 18:34 History of Present Illness: 51-year-old female comes in today with injury to the right ankle. On exam patient has lateral tenderness with swelling. Patient reports stepping down off a step of her porch this afternoon and injured her ankle. Associated symptoms: Deny chest pain Review of Systems General: Reports: 10 or more systems reviewed and unremarkable except in HPI and below Card: Denies: chest pain Resp: Reports: dyspnea Musc: Reports: extremity pain PFSH ED PFSH: Medical History Bipolar disorder current episode depressed Bipolar disorder, current episode mixed, mild Bipolar II disorder Generalized anxiety disorder Psychiatric care Family History Father COPD (chronic obstructive pulmonary disease) Other Cancer Diabetes Hypertension Social History Smoking and tobacco status: never smoked Lives independently: Yes Household members: spouse Marital status: Physical Exam Const: COMMON NORMALS: alert HENMT: COMMON NORMALS: normocephalic HEAD & SCALP: normocephalic Neck/C-Spine: COMMON NORMALS: full ROM Resp: COMMON NORMALS: normal respiratory effort Cardio: COMMON NORMALS: regular rate RATE: regular rate Extremity: RIGHT LOWER EXTREMITY: Yes foot & digits (Swelling and tenderness lateral right ankle.) Right ankle: Yes inspection, Yes palpation (Dorsal pedis pulse intact) and Yes ROM Neuro: SENSORIUM/ORIENTATION: Yes alert Skin: COMMON NORMALS: no rashes or lesions noted GENERAL SKIN EXAM: no rashes or lesions noted Course ED course: 1839, Dr. Benedict, ankle-foot surgeon, was contacted and came to see patient in the ER for further treatment and evaluation. Vital Signs: Vital signs: Vital Signs Pulse Rate 67 01/03/22 19:19 Respiratory Rate 16 01/03/22 19:19 Blood Pressure 147/72 01/03/22 19:19 Pulse Oximetry 97 01/03/22 19:19 Oxygen Delivery Me thod 01/03/22 19:18 MDM - Extremity (Nontraumatic) Medical Decision Making Patient comes in for injury to the right ankle. On exam there is tenderness and swelling to the distal right ankle with positive pulses. Differential diagnosis includes sprain, fracture, dislocation. X-ray notes no dislocation but there is a fracture to the distal fibula. Dr. Burns, foot and ankle surgeon, was consulted and came and seen patient for further evaluation and treatment. Patient agreed to plan of treatment and need for follow-up. Patient was written for short course of hydrocodone until she could complete treatment with Dr. Burns. Lab Data Radiology Impressions Ankle X-Ray 01/03/22 17:56 IMPRESSION: 1. Distal right fibula fracture. Hall type B ankle fracture. Discharge Plan Discharge Patient Disposition: Home Clinical Impression: Fracture of distal end of right fibula Qualifiers: Encounter type: initial encounter Fracture type: closed Fracture morphology: unspecified fracture morphology Qualified Code(s): S82.831A - Other fracture of upper and lower end of right fibula, initial encounter for closed fracture Condition: Stable Prescriptions: New hydrocodone-acetaminophen 5-325 mg tablet 1 tab PO Q6H PRN (Reason: pain) Qty: 10 0RF No Action atorvastatin 10 mg tablet 10 mg PO DAILY Zyrtec 10 mg capsule 10 mg PO DAILY metoprolol tartrate 100 mg tablet 100 mg PO BID hydrochlorothiazide 50 mg tablet 50 mg PO QAM celecoxib [Celebrex] 100 mg capsule 100 mg PO BID alprazolam [Xanax] 0.5 mg tablet 0.5 mg PO BID PRN (Reason: anxiety) Qty: 60 2RF buspirone 10 mg tablet 10 mg PO TID Qty: 90 2RF sertraline [Zoloft] 100 mg tablet 150 mg PO DAILY Qty: 45 2RF ziprasidone HCl [Geodon] 20 mg capsule 20 mg PO BID Qty: 60 2RF Rx Instructions: give with food (meal/snack) trazodone 100 mg tablet 100 mg PO .HS Qty: 60 2RF Rx Instructions: 1-2 tabs at bedtime as needed for sleep lamotrigine [Lamictal] 25 mg tablet 50 mg PO QDAY Qty: 60 2RF cyclobenzaprine 10 mg tablet 10 mg PO .Q4H PRN (Reason: muscle relaxer) (DME) Low profile custom carbon fiber insoles with shoes See Rx Instructions .Route .MEDSUPPLY Qty: 1 0RF Rx Instructions: As directed by [facility]Y&O sumatriptan succinate 100 mg tablet See Rx Instructions PO .COMPLEX Qty: 9 4RF Rx Instructions: take 1 tab at onset of headache; if no relief may repeat 1 tab in 2hr; max = 2 tabs/24 hrs PO pantoprazole 40 mg tablet,delayed release (DR/EC) 40 mg PO DAILY amlodipine 2.5 mg Tablet 2.5 mg PO DAILY Eliquis DVT-PE Treat 30D Start 5 mg (74 tabs) tablets,dose pack See Rx Instructions .ROUTE .COMPLEX Qty: 74 0RF Rx Instructions: orally per package directions Discharge Orders: Discharge ED (Routine); Ordered 01/03/22 Ordered By: Alexey Hilton Referrals: Aneta Gross APN [Primary Care Provider] - Discharge Diet: Usual diet Discharge Activity: Increase activity as tolerated Patient Instructions: Ankle Fracture (ED), Opioid Safety Activity Restrictions/Additional Instructions: Limit activity as directed. Use crutches to help with ambulation. Follow-up with manager of supply chain as scheduled. Return to ED for new concerns. Coding Level of Care Code ED Buffet Server for Mejia Nieves
[2022-01-03] MEDS: HYDROcodone-acetaminophen 10-325 mg Tablet 1 TAB PO (19:05)
[2022-01-03 19:18] VITALS: BP 147/72; PULSE 67; RESP 16; O2SAT 97
--- NOTE | 2022-01-03 19:18 | PM.CONSULT ---
Providers/Reason For Consult Consulting Physician/Specialty*: Nelson Benedict D.P.M. Reason for Consult*: Right distal fibular fracture Primary Care Provider: Aneta Gross APN History of Present Illness History of Present Illness Cindy Dumont is a 51 year old female presents with complaints of right ankle pain. Slipped and fell down 3 stairs visiting a friend in [facility] happened approximately 1:00 PM today 01/03/2022. Patient denies any other concomitant injuries. Denies hitting her head or loss of consciousness. Endorses sharp stabbing pain at the right ankle. Is accompanied by her son. Normal subjective Review of Systems Const: Denies: fever(s), chills or fatigue Eyes: Denies: change in vision Card: Reports: swelling of feet/ankles; Denies: chest pain or palpitations Resp: Denies: dyspnea GI: Denies: abdominal pain, nausea, vomiting, diarrhea or constipation Musc: Reports: extremity pain Skin/Breast: Denies: changes in skin color Neuro: Reports: difficulty walking; Denies: numbness in extremities Medications/Allergies Home Medications Medication Instructions Recorded Confirmed Last Taken Type cetirizine 10 mg capsule (Zyrtec) 10 mg PO DAILY 03/25/19 12/16/21 07/21/21 History hydrochlorothiazide 50 mg tablet 50 mg PO QAM 03/25/19 12/16/21 07/21/21 History metoprolol tartrate 100 mg tablet 100 mg PO BID 03/25/19 12/16/21 07/22/21 05:00 History sumatriptan succinate 100 mg tablet See Rx Instructions PO .COMPLEX #9 05/14/19 12/16/21 Unknown Rx tabs atorvastatin 10 mg tablet 10 mg PO DAILY 01/25/21 12/16/21 07/21/21 History cyclobenzaprine 10 mg tablet 10 mg PO .Q4H PRN muscle relaxer 07/11/21 12/16/21 07/21/21 History pantoprazole 40 mg tablet,delayed 40 mg PO DAILY 07/21/21 12/16/21 07/21/21 History release amlodipine 2.5 mg tablet 2.5 mg PO DAILY 07/22/21 12/16/21 07/22/21 05:00 History apixaban 5 mg (74 tabs) tablets in See Rx Instructions PO .COMPLEX 07/24/21 12/16/21 Unknown Rx a dose pack (Eliquis DVT-PE Treat #74 ea 30D Start) Low profile custom carbon fiber #1 ea 12/14/21 12/16/21 Unknown Rx insoles with shoes celecoxib 100 mg capsule (Celebrex) 100 mg PO BID 12/14/21 12/16/21 Unknown History alprazolam 0.5 mg tablet (Xanax) 0.5 mg PO BID PRN anxiety #60 tabs 12/16/21 12/16/21 Unknown Rx buspirone 10 mg tablet 10 mg PO TID #90 tabs 12/16/21 12/16/21 Unknown Rx lamotrigine 25 mg tablet (Lamictal) 50 mg PO QDAY #60 tabs 12/16/21 12/16/21 Unknown Rx sertraline 100 mg tablet (Zoloft) 150 mg PO DAILY #45 tabs 12/16/21 12/16/21 Unknown Rx trazodone 100 mg tablet 100 mg PO .HS #60 tabs 12/16/21 12/16/21 Unknown Rx ziprasidone HCl 20 mg capsule 20 mg PO BID #60 caps 12/16/21 12/16/21 Unknown Rx (Geodon) hydrocodone 5 mg-acetaminophen 325 1 tab PO Q6H PRN pain #10 tabs 01/03/22 Unknown Rx mg tablet Allergies Allergy/AdvReac Type Severity Reaction Status Date / Time No Known Allergies Allergy Verified 12/16/21 08:32 PFSH Acute PFSH: Medical History Bipolar disorder current episode depressed Bipolar disorder, current episode mixed, mild Bipolar II disorder Generalized anxiety disorder Psychiatric care Family History Father COPD (chronic obstructive pulmonary disease) Other Cancer Diabetes Hypertension Social History Smoking and tobacco status: never smoked Lives independently: Yes Household members: spouse Marital status: Vitals/I&O/Wt Last Vital Signs O2 Del Method 01/03/22 17:52 Weight last 48 hrs Weight 198 lb Physical Exam Narrative: GENERAL: Patient is alert and oriented ?3 and in no acute distress. The following is a focused bilateral lower extremity exam. VASCULAR: Dorsalis pedis and posterior tibial arteries palpable +2. Capillary refill time less than 3 seconds to the distal hallux bilaterally. Calf is supple and nontender proximally and distally. Edema to the right lateral ankle. Pedal hair growth present. NEUROLOGICAL: Epicritic and protopathic sensations grossly intact to the lower extremities. +2 Achilles tendon reflex noted bilaterally. Negative Tinel sign upon percussion of lower extremity nerves. DERMATOLOGICAL: Ecchymosis to the right lateral ankle. No fracture blister, laceration, abrasion or wounds. No erythema. MUSCULOSKELETAL: Exquisite tenderness to palpation at right lateral malleolus. No pain at the medial malleolus or deltoid of the right ankle. No pain at the Lisfranc complex or fifth metatarsal base. No pain proximally at the right fibular neck. Able to dorsiflex her ankle to neutral with guarding and pain. Able to wiggle toes on command. Further musculoskeletal exam deferred due to pain and guarding. CARDIOVASCULAR: S1, S2, normal rate, normal rhythm. Dorsalis pedis and posterior tibial arteries palpable. LUNGS: Clear to auscltation, no use of acessory muscles, no crackles or wheezes. A&P Assessment and plan (1) Closed fracture of right distal fibula: (2) Fall: Plan Pleasant 51-year-old female presents with right ankle pain. X-ray right ankle shows minimally displaced [place] Hall B fracture, ankle mortise is congruent. Patient examined and evaluated, findings and treatment options were discussed with patient at length. Patient was prescribed hydrocodone 5/325 mg by emergency room provider. Applied 4 inch cast padding, 4 inch Ravin wrap and cam boot to the right lower extremity with ankle in neutral position. Patient currently on Eliquis, she will continue with this. Patient dispensed crutches, is to remain nonweightbearing to the right lower extremity at this time. Discussed conservative versus surgical management of her fracture. Patient is concerned that her upcoming vacation in February 20 ski trip is in jeopardy. She would like to pursue surgical treatment to potentially reduce chance of delayed osseous healing. I reviewed at length with the patient, the risks, potential complications, benefits, alternatives, expectations, and typical outcomes associated with the surgery. The risks and potential complications were explained in detail, including but not limited to infection, wound dehiscence or soft tissue complications, bleeding and hematoma, chronic edema, neuritis or nerve damage producing numbness or chronic pain, CRPS, failure to relieve pain or worsening pain, thick / painful / unsightly scar, limited motion / stiffness, malposition, delayed union, malunion, or nonunion, fracture, reaction to implants, anesthetic complications, venous thromboembolism, and deformity recurrence. I discussed the notion of no regrets with the patient as it pertains to complications and outcomes. The patient seemed to understand the nature of the proposed care and required convalescence. They asked appropriate questions, answered to their satisfaction. They are aware no guarantees can be made as to a satisfactory outcome and they understand there may be other possible unforeseen complications or outcomes not listed here that will be treated accordingly if they arise. There were no written or implied guarantees given to the patient. They gave informed consent to proceed. Continue Eliquis during the perioperative period. Do not hold anticoagulants. 01/06/2022 reduction internal fixation right distal fibular fracture, discussed popliteal block with patient, would appreciate popliteal block to the right lower extremity per anesthesia preoperatively if possible. General, supine, gurney, mini C arm, small power, Terrence, 30 minutes. Coding Level of Care Code Acute Wood Lathe Operator for Mejia Nieves Diagnoses Closed fracture of right distal fibula S82.831A Fall W19.XXXA
[2022-01-03 19:19] VITALS: BP 147/72; PULSE 67; RESP 16; O2SAT 97
== END 2022-01-03 19:21 | disposition home or self-care (01) ==
PROVIDERS: Emergency Provider Nurse Practitioner Family; PCP Nurse Practitioner Family
DX: S82.831A Other fracture of upper and lower end of right fibula, initial encounter for closed fracture (principal); Z79.01 Long term (current) use of anticoagulants; X58.XXXA Exposure to other specified factors, initial encounter
CPT/HCPCS: 73610; 99283

== ENCOUNTER 2022-01-04 23:41 | Emergency (ER) | payer SELFPAY ==
--- NOTE | 2022-01-04 23:44 | USR_ITS ---
PROCEDURE INFORMATION: Exam: US Duplex Right Lower Extremity Veins, Limited Exam date and time: 01/05/2022 12:55 AM Age: 51 years old Clinical indication: Pain; Leg, upper; Patient HX: History of dvt rle 2019 after snake bite. August 2021 rle dvt. Taking eliquist since August 2021. Fell off porch 01/04/2022, fracturing right ankle, pending orif. ; Additional info: Leg pain TECHNIQUE: Imaging protocol: Real-time Duplex ultrasound of the Right Lower Extremity with 2-D nelson scale, color Doppler flow and spectral waveform analysis with image documentation. Limited exam was focused on the right lower extremity veins. COMPARISON: [place] [id number] 07/23/2021 11:36 PM FINDINGS: Right deep veins: Unremarkable. The common femoral, femoral, proximal profunda femoral and popliteal veins are patent without thrombus. Normal Doppler waveforms. Normal compressibility and/or augmentation response. Right superficial veins: Unremarkable. Saphenofemoral junction is patent without thrombus. Soft tissues: Unremarkable. US/[place] [id number] IMPRESSION: No evidence of deep vein thrombosis.
[2022-01-04 23:56] VITALS: BP 147/74; PULSE 50; RESP 16; TEMP 36.5; O2SAT 97; BMI 35.0
--- NOTE | 2022-01-05 00:06 | XRR_ITS ---
PROCEDURE INFORMATION: Exam: XR Right Hip Exam date and time: 01/05/2022 12:16 AM Age: 51 years old Clinical indication: Injury or trauma; Other: Pain to right hip post fall and FX of R ankle; Injury date: 01/03/2022 TECHNIQUE: Imaging protocol: Radiologic exam of the Right hip. Views: 1 view hip with pelvis when performed. COMPARISON: MR lumbar spine wo con* [id number] 07/02/2020 1:14 PM FINDINGS: Bones/joints: Unremarkable. No acute fracture. Soft tissues: Unremarkable. XR/XR hip RT 2-3V wo/w pel* [id number] IMPRESSION: No acute findings.
--- NOTE | 2022-01-05 00:12 | W.ED.EXTPRO ---
HPI - Extremity Problem General: Chief complaint: Extremity Injury, Lower Stated complaint: right leg pain, possible blood clot Time Seen by Provider: 01/04/22 23:44 Source: patient Mode of arrival: ambulatory Limitations: no limitations History of Present Illness: 51-year-old female who fell yesterday had a fracture to her right ankle she is scheduled to surgery on Sunday states concerned she is having some pain in her right groin she had a history of DVT in the past 1 to make sure she was not developing DVT she is currently on Eliquis. She rates her pain a 3 out of 10. Associated symptoms: Deny chest pain, fever(s) or rash Review of Systems Const: Denies: fever(s), chills, body aches or change in appetite Eyes: Denies: blurry vision or eye discomfort ENMT: Denies: throat pain or dental pain Card: Denies: chest pain Resp: Denies: dyspnea GI: Denies: abdominal pain, nausea, vomiting or diarrhea : Denies: dysuria Musc: Reports: extremity pain Skin/Breast: Denies: rash Neuro: Denies: headache(s) Psych: Denies: depression Constantin/Lymph: Denies: easy bruising All/Imm: Denies: urticaria PFSH ED PFSH: Medical History Bipolar disorder current episode depressed Bipolar disorder, current episode mixed, mild Bipolar II disorder Generalized anxiety disorder Psychiatric care Family History Father COPD (chronic obstructive pulmonary disease) Other Cancer Diabetes Hypertension Social History Smoking and tobacco status: never smoked Lives independently: Yes Household members: spouse Marital status: Physical Exam Const: COMMON NORMALS: no acute distress, patient oriented x3 and healthy appearing HENMT: COMMON NORMALS: normocephalic and atraumatic HEAD & SCALP: normocephalic and atraumatic Eye: COMMON NORMALS: conjunctivae normal CONJUNCTIVA: Yes conjunctivae normal Neck/C-Spine: COMMON NORMALS: full ROM and supple Chest: COMMONS NORMALS: normal inspection of the chest Resp: COMMON NORMALS: normal respiratory effort Cardio: COMMON NORMALS: regular rate, regular rhythm and No murmurs present (Cardio) RATE: regular rate RHYTHM: regular rhythm GI: INSPECTION: Yes normal to inspection Extremity: COMMON NORMALS: full ROM NARRATIVE EXTREMITY EXAM: Some tenderness to right groin pulses intact Neuro: COMMON NORMALS: patient oriented x3, moves all extremities and no focal motor deficits Psych: COMMON NORMALS: mental status grossly normal, Normal thought process present and cooperative THOUGHT PROCESS: Normal thought process present Skin: COMMON NORMALS: no rashes or lesions noted and no wounds GENERAL SKIN EXAM: no rashes or lesions noted Course Vital Signs: Vital signs: Vital Signs Temperature 97.7 F 01/04/22 23:56 Pulse Rate 50 L 01/04/22 23:56 Respiratory Rate 16 01/04/22 23:56 Blood Pressure 147/74 01/04/22 23:56 Pulse Oximetry 97 01/04/22 23:56 Oxygen Delivery Me thod 01/04/22 23:56 MDM - Extremity (Nontraumatic) Medical Decision Making Patient presents here with right leg pain likely muscle strain from her fall ultrasound showed no DVT patient stable for discharge. Lab Data Radiology Impressions Venous Duplex 01/04/22 23:44 IMPRESSION: No evidence of deep vein thrombosis. Hip/Pelvis X-Ray 01/05/22 00:06 IMPRESSION: No acute findings. Discharge Plan Discharge Patient Disposition: Home Clinical Impression: Leg pain, right Condition: Stable Prescriptions: No Action atorvastatin 10 mg tablet 10 mg PO DAILY Zyrtec 10 mg capsule 10 mg PO DAILY metoprolol tartrate 100 mg tablet 100 mg PO BID hydrochlorothiazide 50 mg tablet 50 mg PO QAM celecoxib [Celebrex] 100 mg capsule 100 mg PO BID alprazolam [Xanax] 0.5 mg tablet 0.5 mg PO BID PRN (Reason: anxiety) Qty: 60 2RF buspirone 10 mg tablet 10 mg PO TID Qty: 90 2RF sertraline [Zoloft] 100 mg tablet 150 mg PO DAILY Qty: 45 2RF ziprasidone HCl [Geodon] 20 mg capsule 20 mg PO BID Qty: 60 2RF Rx Instructions: give with food (meal/snack) trazodone 100 mg tablet 100 mg PO .HS Qty: 60 2RF Rx Instructions: 1-2 tabs at bedtime as needed for sleep lamotrigine [Lamictal] 25 mg tablet 50 mg PO QDAY Qty: 60 2RF cyclobenzaprine 10 mg tablet 10 mg PO .Q4H PRN (Reason: muscle relaxer) (DME) Low profile custom carbon fiber insoles with shoes See Rx Instructions .Route .MEDSUPPLY Qty: 1 0RF Rx Instructions: As directed by AMY&O sumatriptan succinate 100 mg tablet See Rx Instructions PO .COMPLEX Qty: 9 4RF Rx Instructions: take 1 tab at onset of headache; if no relief may repeat 1 tab in 2hr; max = 2 tabs/24 hrs PO hydrocodone-acetaminophen 5-325 mg tablet 1 tab PO Q6H PRN (Reason: pain) Qty: 10 0RF pantoprazole 40 mg tablet,delayed release (DR/EC) 40 mg PO DAILY amlodipine 2.5 mg Tablet 2.5 mg PO DAILY Eliquis DVT-PE Treat 30D Start 5 mg (74 tabs) tablets,dose pack See Rx Instructions .ROUTE .COMPLEX Qty: 74 0RF Rx Instructions: orally per package directions Discharge Orders: Discharge ED (Routine); Ordered 01/05/22 Ordered By: Hunter Lopez Referrals: Aneta Gross APN [Primary Care Provider] - Discharge Diet: Advance as tolerated Discharge Activity: Resume usual activity Patient Instructions: Leg Pain (ED) Coding Level of Care Code 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
== END 2022-01-05 01:43 | disposition home or self-care (01) ==
PROVIDERS: Emergency Provider Emergency Medicine; PCP Nurse Practitioner Family
DX: M79.604 Pain in right leg (principal); Z79.01 Long term (current) use of anticoagulants
CPT/HCPCS: 73502; 93971; 99284

== ENCOUNTER 2022-01-06 09:42 | Day surgery (SDC) | payer MEDICAID, SELFPAY ==
[2022-01-06] VITALS (7 sets, daily range): BP systolic 120–150; BP diastolic 73–91; PULSE 52–71; RESP 8–18; TEMP 36.2–36.7; O2SAT 97–100
--- NOTE | 2022-01-06 | XR_ITS ---
WS: [id number] Right ankle, C-arm fluoroscopy views, 01/06/2022 Clinical Data: orif right anikle Comparison: Right ankle, 01/03/2022 Findings: There is internal fixation of the distal right fibular fracture with a plate and screws. XR/XR ankle RT 2V [id number] Impression: Internal fixation of distal right fibular fracture.
[2022-01-06] MEDS: sodium chloride 0.9% 1,000 ML 30 ML IV (10:35)
[2022-01-06] MEDS: gabapentin 300 mg Capsule PO (10:37)
[2022-01-06 10:55] LABS: Anion Gap 13.2 (5-19); Blood Urea Nitrogen 7 mg/dL (6-20); Calcium 9.4 mg/dL (8.5-10.5); Carbon Dioxide 31 mmol/L (22-29); Chloride 101 mmol/L (98-107); Glomerular Filtration Rate 66.3 mL/min (90-130); Glucose 116 mg/dL (65-115); Osmolality Calculated 291 mOsm/kg (285-295); Potassium 4.2 mmol/L (3.5-5.1); Sodium 141 mmol/L (136-145)
--- NOTE | 2022-01-06 11:05 | W.PM.OPSUD ---
Surgery/Procedure H&P Update DATE OF PROCEDURE: January 06, 2022 DATE H&P PERFORMED: 11/25/21 CHANGES TO PREVIOUS DOCUMENTATION: None PREOP DIAGNOSIS: Right distal fibular fracture PLANNED PROCEDURE: Operation Date: 01/06/22 11:25 Proposed Procedures p Open reduction internal fixation right distal fibular fracture 98529,S82.831A(Right) - Nelson Benedict DPM
--- NOTE | 2022-01-06 11:19 | ANES.PREANE2 ---
Pre-Anesthetic Assessment Height/Weight: Height 1.6 m Weight 89.811 kg Temp Pulse Resp BP Pulse Ox O2 Del Method 98.1 F 58 L 18 150/91 98 01/06/22 10:01/06/22 10:22 01/06/22 10:22 01/06/22 10:22 01/06/22 10:01/06/22 10:23 Preop Diagnosis: Right distal fibular fracture Operation Date: 01/06/22 11:25 Proposed Procedures p Open reduction internal fixation right distal fibular fracture 83322,S82.831A(Right) - Nelson Benedict DPM Familial anesthetic complications: none Was Beta Shannan taken within 24 hours: Yes Was Clonidine taken within 24 hours: N/A Last intake: Intake Last Liquid Date 01/05/22 Last Liquid Time 20:00 Last Solid Date 01/05/22 Last Solid Time 20:00 Social No alcohol and No tobacco Exam alert, oriented x 3, clear to auscultation bilaterally and regular rate & rhythm Airway Submandibular: within normal limits Cervical ROM: within normal limits Mallampati: Class II Dentition: false CV/HEM Hypertension GI Gastroesophageal Reflux Disease Metabolic Hyperlipidemia and Morbid Obesity Neuropsych Anxiety and Depression Anesthetic Plan ASA status: 3 Anesthesia: General and Regional (specify below) (right pop blk) Medications/Allergies Home Medications Medication Instructions Recorded Confirmed Last Taken Type cetirizine 10 mg capsule (Zyrtec) 10 mg PO DAILY 03/25/19 01/06/22 01/06/22 07:30 History hydrochlorothiazide 50 mg tablet 50 mg PO QAM 03/25/19 01/06/22 01/02/22 History metoprolol tartrate 100 mg tablet 100 mg PO BID 03/25/19 01/06/22 01/06/22 07:30 History atorvastatin 10 mg tablet 10 mg PO DAILY 01/25/21 01/06/22 01/05/22 History cyclobenzaprine 10 mg tablet 10 mg PO .Q4H PRN muscle relaxer 07/11/21 01/06/22 01/02/22 History pantoprazole 40 mg tablet,delayed 40 mg PO DAILY 07/21/21 01/06/22 01/06/22 07:30 History release amlodipine 2.5 mg tablet 2.5 mg PO DAILY 07/22/21 01/06/22 01/06/22 07:30 History Low profile custom carbon fiber #1 ea 12/14/21 12/16/21 Unknown Rx insoles with shoes celecoxib 100 mg capsule (Celebrex) 100 mg PO BID 12/14/21 01/06/22 01/06/22 07:30 History alprazolam 0.5 mg tablet (Xanax) 0.5 mg PO BID PRN anxiety #60 tabs 12/16/21 01/06/22 Unknown Rx buspirone 10 mg tablet 10 mg PO TID #90 tabs 12/16/21 01/06/22 01/06/22 07:30 Rx lamotrigine 25 mg tablet (Lamictal) 50 mg PO QDAY #60 tabs 12/16/21 01/06/22 01/06/22 07:30 Rx sertraline 100 mg tablet (Zoloft) 150 mg PO DAILY #45 tabs 12/16/21 01/06/22 01/06/22 07:30 Rx trazodone 100 mg tablet 100 mg PO .HS #60 tabs 12/16/21 01/06/22 01/05/22 Rx ziprasidone HCl 20 mg capsule 20 mg PO BID #60 caps 12/16/21 01/06/22 01/05/22 Rx (Geodon) hydrocodone 5 mg-acetaminophen 325 1 tab PO Q6H PRN pain #10 tabs 01/03/22 01/06/22 01/05/22 Rx mg tablet apixaban 5 mg (74 tabs) tablets in 100 mg PO DAILY 01/05/22 01/06/22 01/06/22 07:30 History a dose pack (Eliquis DVT-PE Treat 30D Start) sumatriptan succinate 100 mg tablet 100 mg PO DIRECTED PRN Headache 01/05/22 01/06/22 07:30 History Allergies Allergy/AdvReac Type Severity Reaction Status Date / Time No Known Allergies Allergy Verified 01/06/22 10:06 Current Medications Generic Name Dose Route Start Last Admin Trade Name Freq PRN Reason Stop Dose Admin Sodium Chloride 1,000 mls @ 30 mls/hr 01/06/22 10:15 01/06/22 10:35 Sodium Chloride 0.9% IV 01/07/22 10:14 30 mls/hr .Q24H WANDA Administration PFSH Anesthesia Medical History Bipolar disorder current episode depressed Bipolar disorder, current episode mixed, mild Bipolar II disorder Generalized anxiety disorder Psychiatric care Family History Father COPD (chronic obstructive pulmonary disease) Other Cancer Diabetes Hypertension Social History Smoking and tobacco status: never smoked Lives independently: Yes Household members: spouse Marital status: Data Anesthesia : 01/06/22 10:20 BMP 01/06/22 10:20 Sodium 141 Potassium 4.2 Chloride 101 Carbon Dioxide 31 H BUN 7 Creatinine 0.9 Glucose 116 H Calcium 9.4 Cardiac Studies: No Data to Display Anesthesia Procedures Nerve Block Nerve Block 1: Main Anesthesia: general anesthesia Time Out Performed: Yes Consent: requested by attending/covering physician, from patient, risks and benefits reviewed and patient agrees to proceed Nerve block location: popliteal (right) Anesthesia monitors applied: pulse oximetry, EKG, BP cuff and oxygen Nerve block position: semi sitting Anesthetic Used: ropivicaine 0.5% Amount of anesthesia used (mL): 30 Ultrasound used to: recognize landmarks Nerve Stimulator Used?: No Interscalene/Femoral BLK: 4 stimuplex 21 g needle used for position and inplane approach Injection: neg aspiration of heme Patient Tolerated Procedure: well Complications: none
[2022-01-06] MEDS: ceFAZolin 2,000 MG in sodium chloride 0.9% (plus) 50 ML 100 MG IV (11:22)
[2022-01-06] MEDS: HYDROcodone-acetaminophen 10-325 mg Tablet 1 TAB PO (12:32)
[2022-01-06] MEDS: HYDROmorphone 1 mg/mL INJ 1 mL 0.5 MG IVP ×2 (12:40→12:50)
--- NOTE | 2022-01-06 12:56 | P.OP_ITS ---
Operative Report Procedure: Date of procedure: January 06, 2022 Pre-op diagnosis: Preop Diagnosis ? Right distal fibular fracture ? Post-op diagnosis: Right distal fibular fracture. Post-op findings: [place] B right lateral malleolus fracture Procedure done: Open reduction internal fixation right distal fibula.? CPT code 63321 Implants: Terrence one third tubular plate 7 hole.? [place] 3.5 mm locking screws x7, 2-0 V icryl, 4-0 Vicryl, skin john, 10 cc of Exparel, 20 cc of 0.5% Marcaine plain Specimens removed/disposition: None Pathology: None Surgeon: Nelson Benedict D.P.M. Blanchard Grinder Operator: Francesca Estimated blood loss: 5 19 IV fluids: None Urine output: None Complications: None Findings: [place]nn [place] B fracture.? No syndesmotic disruption. Brief History: Pleasant 51-year-old female presents with right ankle pain.? X-ray right ankle shows minimally displaced [place] B fracture, ankle mortise is congruent. Patient examined and evaluated, findings and treatment options were discussed with patient at length.? Patient was prescribed hydrocodone 5/325 mg by emergency room provider.? Applied 4 inch cast padding, 4 inch Ravin wrap and cam boot to the right lower extremity with ankle in neutral position.? Patient currently on Eliquis, she will continue with this.? Patient dispensed crutches, is to remain nonweightbearing to the right lower extremity at this time.? Discussed conservative versus surgical management of her fracture.? Patient is concerned that her upcoming vacation in February 20 ski trip is in jeopardy.? She would like to pursue surgical treatment to potentially reduce chance of delayed osseous healing.? I reviewed at length with the patient, the risks, potential complications, benefits, alternatives, expectations, and typical outcomes associated with the surgery. The risks and potential complications were explained in detail, including but not limited to infection, wound dehiscence or soft tissue complications, bleeding and hematoma, chronic edema, neuritis or nerve damage producing numbness or chronic pain, CRPS, failure to relieve pain or worsening pain, thick / painful / unsightly scar, limited motion / stiffness, malposition, delayed union, malunion, or nonunion, fracture, reaction to implants, anesthetic complications, venous thromboembolism, and deformity recurrence.? I discussed the notion of no regrets with the patient as it pertains to complications and outcomes. The patient seemed to understand the nature of the proposed care and required convalescence. They asked appropriate questions, answered to their satisfaction. They are aware no guarantees can be made as to a satisfactory outcome and they understand there may be other possible unforeseen complications or outcomes not listed here that will be treated accordingly if they arise. There were no written or implied guarantees given to the patient. They gave informed consent to proceed.? Recommended continuation of anticoagulants to the perioperative period. Procedure: Under mild sedation the patient was brought to the operating room.? She remained on the gurney in supine position.? In preop holding anesthesia administered a right popliteal block.? Timeout was performed.? Anesthesia was then administered by the anesthesia service.? Local anesthesia injected by myself consisting of 10 cc of Exparel and 20 cc of 0.5% Marcaine plain at the right lateral leg.? Well- padded pneumatic tourniquet applied to the right ankle.? The right lower extremity was then scrubbed, prepped and draped utilizing normal aseptic technique.? The right foot and ankle were exanguinated with an Esmarch bandage and the tourniquet inflated to 250 mmHg. Attention was directed to the right lateral malleolus where a linear longitudinal incision was made over the distal fibula through skin with a #15 blade.? Dissection was then carried down through subcutaneous tissue to the layer of periosteum utilizing a combination of blunt and sharp technique.? Care was taken to retract and preserve neurovascular and tendinous structures.? All bleeders were ligated and cauterized as necessary.? Linear periosteal incision was made exposing a [place] B fracture with approximately 3 mm of displacement.? This was distracted and curettaged of hematoma followed by saline flush.? The fracture was then reduced utilizing [id number] self-retaining clamps and fixated with a one third tubular plate 7 hole with locking 3.5 millimeter screws with excellent bony apposition and compression noted.? Fibula was pulled out the length and the rotated, intraoperative fluoroscopy confirmed anatomic alignment of the fibula and no hardware violating the ankle mortise.? Cotton hook test yielded negative for syndesmotic disruption.? Smooth range of motion was appreciated at the right ankle intraoperatively.? The incision was then irrigated with copious amounts of sterile skin solution and periosteum closed over hardware utilizing 2-0 Vicryl and subcutaneous tissue reapproximated utilizing 3-0 Vicryl and skin with skin john.? The incision was then dressed with Adaptic, sterile 4 x 4's, Kerlix and Ravin wrap.? Cam boot was then applied.? Tourniquet was then deflated and a prompt hyperemic response was noted to the distal digits of the right foot.? Patient tolerated the procedure and anesthesia well and was transferred to the PACU with vital signs stable and vascular status intact.? Following a period of postoperative monitoring she will be discharged home.? She is to remain nonweightbearing to the right lower extremity and elevate the right foot while resting.? She is to remain immobilized with a cam boot except for removal for gentle range of motion in the sagittal plane, she is to dorsiflex and plantarflex gently below threshold of pain for 15 to 20 minutes daily.? Patient discharged without home care instructions, follow-up and provided with my cell phone number to contact with any postoperative questions or concerns.? Patient is currently on Eliquis, she notes continued this throughout the perioperative period.
--- NOTE | 2022-01-06 13:29 | ANE.PACU2 ---
Inpatient post-anesthesia follow up: Airway intact: Yes Vital signs: Temperature 97.4 F Pulse Rate 65 Respiratory Rate 18 Blood Pressure 130/78 Pulse Oximetry 98 Oxygen Delivery Me thod Room Air Oxygen Flow Rate 6 Fraction of Inspir ed Oxygen Hydration adequate: Yes Nausea and vomiting: No Pain level: 3 Mental status: Baseline
--- NOTE | 2022-01-07 | SCC_ITS ---
Procedure done: Open reduction internal fixation right distal fibula. CPT code 31683 2 seconds of fluoroscopic guidance, for a cumulative dose of 0.06 mGy, was provided to Dr. Benedict by the radiology department. C-arm images of the RIGHT ankle were saved for the patient's permanent record. [facility]
--- NOTE | 2022-01-08 09:46 | P.OP_ITS ---
Operative Report Date of procedure: January 08, 2022 Pre-op diagnosis: Preop Diagnosis Right distal fibular fracture Post-op diagnosis: Right distal fibular fracture. Post-op findings: Glynn Hall B right lateral malleolus fracture Procedure done: Open reduction internal fixation right distal fibula. CPT code 15654 Implants: Terrence one third tubular plate 7 hole. [place] 3.5 mm locking screws x7, 2-0 Vicryl, 4-0 Vicryl, skin john, 10 cc of Exparel, 20 cc of 0.5% Marcaine plain Specimens removed/disposition: None Pathology: None Surgeon: Nelson Benedict D.P.M. Coin Machine Mechanic: Francesca Estimated blood loss: 5 19 IV fluids: None Urine output: None Complications: None Findings: Glynn [place] B fracture. No syndesmotic disruption. Brief History: Pleasant 51-year-old female presents with right ankle pain.? X-ray right ankle shows minimally displaced [place] B fracture, ankle mortise is congruent. Patient examined and evaluated, findings and treatment options were discussed with patient at length.? Patient was prescribed hydrocodone 5/325 mg by emergency room provider.? Applied 4 inch cast padding, 4 inch Ravin wrap and cam boot to the right lower extremity with ankle in neutral position.? Patient currently on Eliquis, she will continue with this.? Patient dispensed crutches, is to remain nonweightbearing to the right lower extremity at this time.? Discussed conservative versus surgical management of her fracture.? Patient is concerned that her upcoming vacation in February 20 ski trip is in jeopardy.? She would like to pursue surgical treatment to potentially reduce chance of delayed osseous healing.? I reviewed at length with the patient, the risks, potential complications, benefits, alternatives, expectations, and typical outcomes associated with the surgery. The risks and potential complications were explained in detail, including but not limited to infection, wound dehiscence or soft tissue complications, bleeding and hematoma, chronic edema, neuritis or nerve damage producing numbness or chronic pain, CRPS, failure to relieve pain or worsening pain, thick / painful / unsightly scar, limited motion / stiffness, malposition, delayed union, malunion, or nonunion, fracture, reaction to implants, anesthetic complications, venous thromboembolism, and deformity recurrence.? I discussed the notion of no regrets with the patient as it pertains to complications and outcomes. The patient seemed to understand the na ture of the proposed care and required convalescence. They asked appropriate questions, answered to their satisfaction. They are aware no guarantees can be made as to a satisfactory outcome and they understand there may be other possible unforeseen complications or outcomes not listed here that will be treated accordingly if they arise. There were no written or implied guarantees given to the patient. They gave informed consent to proceed. Recommended continuation of anticoagulants to the perioperative period. Procedure: Under mild sedation the patient was brought to the operating room. She remained on the gurney in supine position. In preop holding anesthesia administered a right popliteal block. Timeout was performed. Anesthesia was then administered by the anesthesia service. Local anesthesia injected by myself consisting of 10 cc of Exparel and 20 cc of 0.5% Marcaine plain at the right lateral leg. Well- padded pneumatic tourniquet applied to the right ankle. The right lower extremity was then scrubbed, prepped and draped utilizing normal aseptic technique. The right foot and ankle were exanguinated with an Esmarch bandage and the tourniquet inflated to 250 mmHg. Attention was directed to the right lateral malleolus where a linear longitudinal incision was made over the distal fibula through skin with a #15 blade. Dissection was then carried down through subcutaneous tissue to the layer of periosteum utilizing a combination of blunt and sharp technique. Care was taken to retract and preserve neurovascular and tendinous structures. All bleeders were ligated and cauterized as necessary. Linear periosteal incision was made exposing a [place] B fracture with approximately 3 mm of displacement. This was distracted and curettaged of hematoma followed by saline flush. The fracture was then reduced utilizing [id number] self-retaining clamps and fixated with a one third tubular plate 7 hole with locking 3.5 millimeter screws with excellent bony apposition and compression noted. Fibula was pulled out the length and the rotated, intraoperative fluoroscopy confirmed anatomic alignment of the fibula and no hardware violating the ankle mortise. Cotton hook test yielded negative for syndesmotic disruption. Smooth range of motion was appreciated at the right ankle intraoperatively. The incision was then irrigated with copious amounts of sterile skin solution and periosteum closed over hardware utilizing 2-0 Vicryl and subcutaneous tissue reapproximated utilizing 3-0 Vicryl and skin with skin john. The incision was then dressed with Adaptic, sterile 4 x 4's, Kerlix and Ravin wrap. Cam boot was then applied. Tourniquet was then deflated and a prompt hyperemic response was noted to the distal digits of the right foot. Patient tolerated the procedure and anesthesia well and was transferred to the PACU with vital signs stable and vascular status intact. Following a period of postoperative monitoring she will be discharged home. She is to remain nonweightbearing to the right lower extremity and elevate the right foot while resting. She is to remain immobilized with a cam boot except for removal for gentle range of motion in the sagittal plane, she is to dorsiflex and plantarflex gently below threshold of pain for 15 to 20 minutes daily. Patient discharged without home care instructions, follow-up and provided with my cell phone number to contact with any postoperative questions or concerns. Patient is currently on Eliquis, she notes continued this throughout the perioperative period.
== END 2022-01-06 13:45 | disposition home or self-care (01) ==
PROVIDERS: Anesthesiology; PCP Nurse Practitioner Family; Visit Provider Podiatrist Foot & Ankle Surgery
PROC: (CPT 27792; principal; 2022-01-06 11:15)
DX: S82.831A Other fracture of upper and lower end of right fibula, initial encounter for closed fracture (principal); X58.XXXA Exposure to other specified factors, initial encounter; I10 Essential (primary) hypertension; K21.9 Gastro-esophageal reflux disease without esophagitis; F41.9 Anxiety disorder, unspecified; F32.A Depression, unspecified; E66.01 Morbid (severe) obesity due to excess calories; Z68.35 Body mass index [BMI] 35.0-35.9, adult
CPT/HCPCS: 27792; 36415; 73600; 76000; 80048; C1713; C9290; J1100; J1170; J2250; J2405; J2704; J2795; J3010; J7030

== ENCOUNTER 2022-01-15 11:46 | Emergency (ER) | payer MEDICAID, SELFPAY ==
[2022-01-15 12:19] VITALS: BP 163/81; PULSE 54; RESP 14; TEMP 36.6; O2SAT 94; BMI 35.0
--- NOTE | 2022-01-15 12:40 | USR_ITS ---
PROCEDURE INFORMATION: Exam: US Duplex Right Lower Extremity Veins, Limited Exam date and time: 01/15/2022 1:28 PM Age: 51 years old Clinical indication: Swelling (edema) of limb; Lower extremity, right; Prior surgery; Surgery date: <1 month; Surgery type: Patient had surgery on 01-06-2022 due to tibia-fibula fracture. ; Additional info: Post op swelling TECHNIQUE: Imaging protocol: Real-time Duplex ultrasound of the Right Lower Extremity with 2-D nelson scale, color Doppler flow and spectral waveform analysis with image documentation. Limited exam was focused on the right lower extremity veins. COMPARISON: US PV Venous 01/05/2022 12:55 AM FINDINGS: Right deep veins: Unremarkable. The common femoral, femoral, proximal profunda femoral, popliteal, posterior tibial and peroneal veins are patent without thrombus. Normal Doppler waveforms. Normal compressibility and/or augmentation response. Right superficial veins: Unremarkable. Saphenofemoral junction is patent without thrombus. Soft tissues: Unremarkable. US/[place] [id number] IMPRESSION: No sonographic evidence of deep vein thrombosis.
--- NOTE | 2022-01-15 13:01 | W.ED.GENADLT ---
HPI - General Adult General: Chief complaint: General Medical Stated complaint: Had surgery, feel she has infection in right leg. Time Seen by Provider: 01/15/22 12:33 History of Present Illness: 51-year-old female presents due to concerns for either infection versus DVT in her right leg. Patient reports that she had surgery on 01/06/2022 due to tibia-fibula fracture. That couple days ago started getting little red and swollen and she was started on Augmentin. Patient reports that she feels like the swelling and tenderness is increased. That she has a history of DVTs and is concerned that she may have a DVT. Patient denies any fever, chills. There is currently no drainage. She feels like she has some swelling around the incision site. Associated symptoms: Deny chest pain, dyspnea, headache(s), nausea, palpitations or vomiting Review of Systems Const: Denies: fever(s) or chills Eyes: Denies: change in vision or blurry vision Card: Denies: chest pain or palpitations Resp: Denies: dyspnea, productive cough or wheezing GI: Denies: abdominal pain, nausea or vomiting : Denies: difficulty voiding or urinary frequency Musc: Reports: extremity pain, joint swelling, joint redness and joint warmth Skin/Breast: Reports: erythema and skin tenderness Neuro: Denies: headache(s) or dizziness Psych: Denies: anxiety or depression PFSH ED PFSH: Medical History Bipolar disorder current episode depressed Bipolar disorder, current episode mixed, mild Bipolar II disorder Generalized anxiety disorder Psychiatric care Family History Father COPD (chronic obstructive pulmonary disease) Other Cancer Diabetes Hypertension Social History Smoking and tobacco status: never smoked Lives independently: Yes Household members: spouse Marital status: Physical Exam Const: COMMON NORMALS: no acute distress, patient oriented x3, no limitations and alert Resp: COMMON NORMALS: normal respiratory effort, No retractions and No use of accessory muscles Cardio: COMMON NORMALS: regular rate and regular rhythm RATE: regular rate RHYTHM: regular rhythm GI: COMMON NORMALS: Soft to palpation and non-tender PALPATION: Yes Soft to palpation Extremity: OTHER: Right lower extremity with some mild swelling, erythema. Patient with approximate 10 to 12 cm incision with john with some mild swelling and erythema around it. There is no drainage. Patient has tenderness to her posterior right calf. Neuro: COMMON NORMALS: patient oriented x3 SENSORIUM/ORIENTATION: Yes alert Skin: NARRATIVE SKIN EXAM: Erythema and warmth around postop incision site. No active draining. There is some mild swelling. [place] in place. Course Vital Signs: Vital signs: Vital Signs Temperature 97.9 F 01/15/22 12:19 Pulse Rate 50 L 01/15/22 13:19 Respiratory Rate 14 01/15/22 12:19 Blood Pressure 151/75 01/15/22 13:19 Pulse Oximetry 95 01/15/22 13:19 Oxygen Delivery Me thod 01/15/22 13:19 MDM - General Adult Medical Decision Making Patient with negative ultrasound for DVT. Patient's swelling and warmth and erythema improved after unwrapping the leg and have it elevated. Patient with may be a mild infection. We will give her 2 g of Rocephin and some Toradol. Recommend she calls her risk and insurance consultant that did the surgery tomorrow for further outpatient evaluation. She has a negative white count. Very mild CRP elevation. Discussed with her the need to keep her leg elevated and possibly unwrapped. Patient stable and discharged home Lab Data : 01/15/22 12:52 01/15/22 12:52 Laboratory Results WBC 7.1 10^3/uL (4.0-10.0) 01/15/22 12:52 RBC 4.91 10^6/uL (4.1-5.3) 01/15/22 12:52 Hgb 14.6 g/dL (11.5-15.3) 01/15/22 12:52 Hct 45.2 % (37.0-47.0) 01/15/22 12:52 MCV 92.1 fl (81-99) 01/15/22 12:52 MCH 29.7 pg (28.0-34.0) 01/15/22 12:52 MCHC 32.3 g/dL (30.0-36.0) 01/15/22 12:52 RDW 12.6 % (12.1-15.1) 01/15/22 12:52 Plt Count 249 10^3/cmm (130-400) 01/15/22 12:52 MPV 10.4 fL (7.4-10.4) 01/15/22 12:52 Neut % (Auto) 58.6 % 01/15/22 12:52 Lymph % (Auto) 29.1 % 01/15/22 12:52 [place] % (Auto) 8.5 % 01/15/22 12:52 Eos % (Auto) 2.8 % 01/15/22 12:52 Baso % (Auto) 0.7 % 01/15/22 12:52 Neut # (Auto) 4.16 10^3/uL (1.8-7.7) 01/15/22 12:52 Lymph # (Auto) 2.1 10^3/uL (0.8-4.8) 01/15/22 12:52 [place] # (Auto) 0.6 10^3/uL (0.2-0.9) 01/15/22 12:52 Eos # (Auto) 0.2 10^3/uL (0.0-0.8) 01/15/22 12:52 Baso # (Auto) 0.1 10^3/uL (0.0-0.1) 01/15/22 12:52 Nucleated RBC % (auto) 0 % 01/15/22 12:52 Nucleated RBCs # 0.0 /100WBC 01/15/22 12:52 Sodium 139 mmol/L (136-145) 01/15/22 12:52 Potassium 4.2 mmol/L (3.5-5.1) 01/15/22 12:52 Chloride 101 mmol/L (98-107) 01/15/22 12:52 Carbon Dioxide 29 mmol/L (22-29) 01/15/22 12:52 Anion Gap 13.2 (5-19) 01/15/22 12:52 BUN 10 mg/dL (6-20) 01/15/22 12:52 Creatinine 1.0 mg/dL (0.5-0.9) H 01/15/22 12:52 GFR Calculation 58.7 mL/min (90-130) L 01/15/22 12:52 Glucose 94 mg/dL (65-115) 01/15/22 12:52 Calculated Osmolality 287 mOsm/kg (285-295) 01/15/22 12:52 Calcium 9.6 mg/dL (8.5-10.5) 01/15/22 12:52 C-Reactive Protein 8.4 mg/L (0.0-4.9) H 01/15/22 12:52 Discharge Plan Discharge Patient Disposition: Home Clinical Impression: Postoperative wound cellulitis Condition: Stable Prescriptions: No Action atorvastatin 10 mg tablet 10 mg PO DAILY Zyrtec 10 mg capsule 10 mg PO DAILY metoprolol tartrate 100 mg tablet 100 mg PO BID hydrochlorothiazide 50 mg tablet 50 mg PO QAM celecoxib [Celebrex] 100 mg capsule 100 mg PO BID alprazolam [Xanax] 0.5 mg tablet 0.5 mg PO BID PRN (Reason: anxiety) Qty: 60 2RF buspirone 10 mg tablet 10 mg PO TID Qty: 90 2RF sertraline [Zoloft] 100 mg tablet 150 mg PO DAILY Qty: 45 2RF ziprasidone HCl [Geodon] 20 mg capsule 20 mg PO BID Qty: 60 2RF Rx Instructions: give with food (meal/snack) trazodone 100 mg tablet 100 mg PO .HS Qty: 60 2RF Rx Instructions: 1-2 tabs at bedtime as needed for sleep lamotrigine [Lamictal] 25 mg tablet 50 mg PO QDAY Qty: 60 2RF cyclobenzaprine 10 mg tablet 10 mg PO .Q4H PRN (Reason: muscle relaxer) (DME) Low profile custom carbon fiber insoles with shoes See Rx Instructions .Route .MEDSUPPLY Qty: 1 0RF Rx Instructions: As directed by [facility] amoxicillin-pot clavulanate 875-125 mg tablet 1 tab PO Q12H Qty: 20 0RF hydrocodone-acetaminophen 5-325 mg tablet 1 tab PO Q6H PRN (Reason: pain) 7 Days Qty: 28 0RF sumatriptan succinate 100 mg tablet 100 mg PO DIRECTED PRN (Reason: Headache) Rx Instructions: take 1 tab at onset of headache; if no relief may repeat 1 tab in 2hr; max = 2 tabs/24 hrs PO Eliquis DVT-PE Treat 30D Start 5 mg (74 tabs) tablets,dose pack 100 mg PO DAILY Rx Instructions: orally per package directions pantoprazole 40 mg tablet,delayed release (DR/EC) 40 mg PO DAILY amlodipine 2.5 mg Tablet 2.5 mg PO DAILY Discharge Orders: Discharge ED (Routine); Ordered 01/15/22 Ordered By: Ernst Case Referrals: Aneta Gross APN [Primary Care Provider] - Discharge Diet: Advance as tolerated Discharge Activity: Limit activity as instructed Patient Instructions: Cellulitis (ED), Opioid Safety, Pain Management Activity Restrictions/Additional Instructions: Please continue your already prescribed antibiotics, please call your surgeon tomorrow morning to make them aware of your ER visit. Keep leg elevated when not ambulating. Please follow your previously provided postop instructions per your risk and insurance consultant Coding Level of Care Code ED Centrifugal Spinner for Chg Fwd Exam Expanded Problem Focused
[2022-01-15 13:06] LABS: Basophils # 0.1 10^3/uL (0.0-0.1); Basophils % 0.7 %; Eosinophils # 0.2 10^3/uL (0.0-0.8); Eosinophils % 2.8 %; Hematocrit 45.2 % (37.0-47.0); Hemoglobin 14.6 g/dL (11.5-15.3); Lymphocytes # 2.1 10^3/uL (0.8-4.8); Lymphocytes % 29.1 %; Mean Corpuscular HGB Conc 32.3 g/dL (30.0-36.0); Mean Corpuscular Hemoglobin 29.7 pg (28.0-34.0); Mean Corpuscular Volume 92.1 fl (81-99); Mean Platelet Volume 10.4 fL (7.4-10.4); Monocytes # 0.6 10^3/uL (0.2-0.9); Monocytes % 8.5 %; Neutrophils # 4.16 10^3/uL (1.8-7.7); Neutrophils % 58.6 %; Nucleated Red Blood Cells % 0 %; Platelet Count 249 10^3/cmm (130-400); Red Blood Count 4.91 10^6/uL (4.1-5.3); Red Cell Distribution Width 12.6 % (12.1-15.1); White Blood Count 7.1 10^3/uL (4.0-10.0)
[2022-01-15 13:19] VITALS: BP 151/75; PULSE 50; O2SAT 95
[2022-01-15 13:26] LABS: Anion Gap 13.2 (5-19); Blood Urea Nitrogen 10 mg/dL (6-20); C Reactive Protein 8.4 mg/L (0.0-4.9); Calcium 9.6 mg/dL (8.5-10.5); Carbon Dioxide 29 mmol/L (22-29); Chloride 101 mmol/L (98-107); Glomerular Filtration Rate 58.7 mL/min (90-130); Glucose 94 mg/dL (65-115); Osmolality Calculated 287 mOsm/kg (285-295); Potassium 4.2 mmol/L (3.5-5.1); Sodium 139 mmol/L (136-145)
[2022-01-15] MEDS: ketorolac 30 mg/mL INJ 15 MG IVP (14:00)
[2022-01-15] MEDS: cefTRIAXone 2,000 MG in sodium chloride 0.9% (plus) 50 ML 100 MG IV (14:00)
[2022-01-15 14:07] VITALS: BP 126/65; PULSE 50; O2SAT 95
[2022-01-15 14:56] VITALS: BP 144/86; PULSE 48; O2SAT 98
== END 2022-01-15 14:52 | disposition home or self-care (01) ==
PROVIDERS: Emergency Provider Student in an Organized Health Care Education/Training Program; PCP Nurse Practitioner Family
DX: T81.41XA Infection following a procedure, superficial incisional surgical site, initial encounter (principal); L03.115 Cellulitis of right lower limb
CPT/HCPCS: 80048; 85025; 86140; 87040; 93971; 96365; 96375; 99285; J0696; J1885

== ENCOUNTER → 2022-01-19 15:28 | Outpatient (BNVA) | payer SELFPAY | PROVIDERS: PCP Nurse Practitioner Family; Visit Provider Podiatrist Foot & Ankle Surgery | DX: Z98.890 Other specified postprocedural states (principal) | CPT/HCPCS: 73610; 99024 ==

== ENCOUNTER → 2022-02-02 12:34 | Outpatient (BNVA) | payer SELFPAY | PROVIDERS: PCP Nurse Practitioner Family; Visit Provider Podiatrist Foot & Ankle Surgery | DX: Z98.890 Other specified postprocedural states (principal); X58.XXXA Exposure to other specified factors, initial encounter; S82.831A Other fracture of upper and lower end of right fibula, initial encounter for closed fracture | CPT/HCPCS: 73610; 99024 ==

== ENCOUNTER → 2022-02-16 12:16 | Outpatient (BNVA) | payer MEDICAID, SELFPAY | PROVIDERS: PCP Nurse Practitioner Family; Visit Provider Podiatrist Foot & Ankle Surgery | DX: X58.XXXA Exposure to other specified factors, initial encounter (principal); Z98.890 Other specified postprocedural states; S82.831A Other fracture of upper and lower end of right fibula, initial encounter for closed fracture | CPT/HCPCS: 73610; 99024 ==

== ENCOUNTER → 2022-03-02 12:45 | Outpatient (BNVA) | payer SELFPAY | PROVIDERS: PCP Nurse Practitioner Family; Visit Provider Podiatrist Foot & Ankle Surgery | DX: S82.831D Other fracture of upper and lower end of right fibula, subsequent encounter for closed fracture with routine healing (principal); X58.XXXD Exposure to other specified factors, subsequent encounter | CPT/HCPCS: 73610 ==

== ENCOUNTER → 2022-04-27 13:41 | Outpatient (BNVA) | payer SELFPAY | PROVIDERS: PCP Nurse Practitioner Family; Visit Provider Podiatrist Foot & Ankle Surgery | DX: Z98.890 Other specified postprocedural states (principal); Z87.81 Personal history of (healed) traumatic fracture; S82.831A Other fracture of upper and lower end of right fibula, initial encounter for closed fracture; X58.XXXA Exposure to other specified factors, initial encounter | CPT/HCPCS: 73610 ==

== ENCOUNTER → 2024-07-23 12:39 | Outpatient (BNVA) | payer MEDICARE, MEDICAID, SELFPAY | PROVIDERS: PCP Nurse Practitioner Family; Visit Provider Podiatrist Foot & Ankle Surgery | DX: M25.571 Pain in right ankle and joints of right foot (principal); G57.61 Lesion of plantar nerve, right lower limb; M79.671 Pain in right foot; T84.84XA Pain due to internal orthopedic prosthetic devices, implants and grafts, initial encounter; Y79.2 Prosthetic and other implants, materials and accessory orthopedic devices associated with adverse incidents | CPT/HCPCS: 64455; 73610; 73630; 99214; J1100; J3301; J3490 ==